=== PATIENT | male | born 1935 | race Caucasian/White ===

== ENCOUNTER → 2017-01-17 | Outpatient (CLI) | payer MEDICARE, OTHER ==
[2017-01-17 12:31] LABS: Urine Bilirubin Negative (Negative); Urine Blood Negative /uL (Negative); Urine Color Yellow (Yellow); Urine Glucose Normal (Normal); Urine Ketone Negative (Negative); Urine Nitrite Negative (Negative); Urine Urobilinogen Normal (Negative)
[2017-01-17 12:33] LABS: Basophils # (auto) 0 uL; Basophils % (auto) 0.6 % (0.0-2.0); Eosinophils # (auto) 0.2 uL; Eosinophils % (auto) 3.5 % (0.0-7.0); Hematocrit 47.5 % (41.0-53.0); Hemoglobin 15.3 g/dL (13.5-17.5); Lymphocytes # (auto) 1.5 uL; Lymphocytes % (auto) 31.5 % (10.0-50.0); Mean Corpuscular Hemoglobin 32.2 pg (28.0-32.0); Mean Corpuscular Hgb Conc. 32.2 g/dL (32.0-36.0); Mean Corpuscular Volume 99.9 fL (80.0-100.0); Mean Platelet Volume 8.7 fL (7.4-10.4); Monocytes # (auto) 0.3 uL; Monocytes % (auto) 6.2 % (0.0-12.0); Neutrophils # (auto) 2.8 uL; Neutrophils % (auto) 58.2 % (37.0-80.0); Platelet Count (auto) 209 10^3/uL (140-450); Red Cell Distribution Width 12.7 % (11.6-16.0); White Blood Cell 4.8 10^3/uL (4.4-10.8)
[2017-01-17 14:05] LABS: Cholesterol 133 mg/dL (<200); HDL Cholesterol 45 mg/dL (40-59); LDL Cholesterol 66 mg/dL (<100); Triglycerides 254 mg/dL (<150)
[2017-01-17 15:27] LABS: Calcium 8.9 mg/dL (8.5-10.1); Potassium 4.7 mmol/L (3.5-5.1)
[2017-01-17 15:29] LABS: BUN/Creatinine Ratio 14.6
[2017-01-17 15:44] LABS: Bilirubin, Direct 0.2 mg/dL (0-0.2); Bilirubin, Total 0.6 mg/dL (0.2-1.0); Total Protein 7.8 g/dL (6.4-8.2)
== END | disposition home or self-care (01) ==
LOC: LAB 07:52
PROVIDERS: ATTEND Internal Medicine Cardiovascular Disease
DX: I10 Essential (primary) hypertension (principal); E78.00 Pure hypercholesterolemia, unspecified; K74.1 Hepatic sclerosis; E11.9 Type 2 diabetes mellitus without complications; R97.20 Elevated prostate specific antigen [PSA]; R53.81 Other malaise; E03.9 Hypothyroidism, unspecified; D64.9 Anemia, unspecified; E55.9 Vitamin D deficiency, unspecified; N39.0 Urinary tract infection, site not specified
CPT/HCPCS: 36415; 80048; 80061; 80076; 81003; 82306; 83036; 84153; 84403; 84443; 85025

== ENCOUNTER → 2017-09-09 | Outpatient (CLI) | payer MEDICARE, OTHER | END | disposition home or self-care (01) | LOC: LAB 10:25 | PROVIDERS: ATTEND Internal Medicine Cardiovascular Disease | DX: E11.9 Type 2 diabetes mellitus without complications (principal) | CPT/HCPCS: 36415; 83036 ==

== ENCOUNTER → 2017-12-05 | Outpatient (CLI) | payer MEDICARE, OTHER | END | disposition home or self-care (01) | LOC: Rad HDHVI 09:51 | PROVIDERS: ATTEND Internal Medicine Cardiovascular Disease | DX: R06.02 Shortness of breath (principal); R07.89 Other chest pain | CPT/HCPCS: 93306 ==

== ENCOUNTER → 2017-12-09 | Outpatient (CLI) | payer MEDICARE, OTHER ==
[~2017-12-09] VITALS: Ht 190.5 cm; Wt 98.4 kg
== END | disposition home or self-care (01) ==
LOC: Rad HDHVI 09:22
PROVIDERS: ATTEND Internal Medicine Cardiovascular Disease
DX: E11.9 Type 2 diabetes mellitus without complications (principal); R07.89 Other chest pain; R06.02 Shortness of breath
CPT/HCPCS: 78452; 93017; 96374; A9500

== ENCOUNTER → 2017-12-25 | Outpatient (CLI) | payer MEDICARE, OTHER | LOC: Rad HDHVI 11:07 | PROVIDERS: ATTEND Internal Medicine Cardiovascular Disease | DX: G31.9 Degenerative disease of nervous system, unspecified (principal); I67.2 Cerebral atherosclerosis; I63.9 Cerebral infarction, unspecified | CPT/HCPCS: 70450 ==

== ENCOUNTER → 2017-12-31 | Outpatient (CLI) | payer MEDICARE, OTHER | END | disposition home or self-care (01) | LOC: Rad HDHVI 08:19 | PROVIDERS: ATTEND Internal Medicine Cardiovascular Disease | DX: I65.23 Occlusion and stenosis of bilateral carotid arteries (principal) | CPT/HCPCS: 93880 ==

== ENCOUNTER → 2018-04-04 | Outpatient (CLI) | payer MEDICARE, OTHER | END | disposition home or self-care (01) | LOC: Rad HDHVI 10:59 | PROVIDERS: ATTEND Internal Medicine Cardiovascular Disease | DX: M85.9 Disorder of bone density and structure, unspecified (principal); M85.10 Skeletal fluorosis, unspecified site; I10 Essential (primary) hypertension; R06.02 Shortness of breath; E11.9 Type 2 diabetes mellitus without complications | CPT/HCPCS: 77078 ==

== ENCOUNTER 2018-09-17 18:13 | Emergency (ER) | payer MEDICARE, OTHER ==
[~2018-09-17] VITALS: Ht 190.5 cm; Wt 77.1 kg
[2018-09-17 18:19] VITALS: BP 169/70
== END 2018-09-17 21:31 | disposition left against medical advice (07) ==
LOC: EDBD 18:13 → ER 18:20
DX: T17.228A Food in pharynx causing other injury, initial encounter (principal); Z53.21 Procedure and treatment not carried out due to patient leaving prior to being seen by health care provider; X58.XXXA Exposure to other specified factors, initial encounter; Y93.89 Activity, other specified; Y99.8 Other external cause status; Y92.89 Other specified places as the place of occurrence of the external cause
CPT/HCPCS: 70360; 71045

== ENCOUNTER → 2019-01-20 | Outpatient (CLI) | payer MEDICARE, OTHER ==
[~2019-01-20] VITALS: Ht 190.5 cm; Wt 95.3 kg
[2019-01-20 12:48] LABS: Urine Blood Negative /uL (Negative)
[2019-01-20 12:50] LABS: Basophils # (auto) 0 uL; Basophils % (auto) 0.6 % (0.0-2.0); Eosinophils # (auto) 0.1 uL; Eosinophils % (auto) 2.7 % (0.0-7.0); Hematocrit 44.9 % (41.0-53.0); Hemoglobin 15.2 g/dL (13.5-17.5); Lymphocytes % (auto) 18.4 % (10.0-50.0); Mean Corpuscular Hemoglobin 33.5 pg (28.0-32.0); Mean Corpuscular Hgb Conc. 33.8 g/dL (32.0-36.0); Mean Corpuscular Volume 99.3 fL (80.0-100.0); Monocytes # (auto) 0.4 uL; Monocytes % (auto) 7.3 % (0.0-12.0); Platelet Count (auto) 171 10^3/uL (140-450); Red Blood Cells 4.53 10^6/uL (4.5-5.90); Red Cell Distribution Width 13.1 % (11.8-14.3); White Blood Cell 5.6 10^3/uL (4.4-10.8)
[2019-01-20 13:07] LABS: Albumin 3.7 g/dL (3.4-5.0); Calcium 9.2 mg/dL (8.5-10.1); Potassium 4.5 mmol/L (3.5-5.1)
[2019-01-20 13:13] LABS: Bilirubin, Total 0.8 mg/dL (0.2-1.0); Total Protein 7.7 g/dL (6.4-8.2)
[2019-01-20 13:24] LABS: Free T4 (Free Thyroxine) 1.06 ng/dL (0.89-1.76); Prostate Specific Antigen 1.93 ng/mL (0.0-4.0)
== END | disposition home or self-care (01) ==
LOC: Rad HDHVI 07:53
PROVIDERS: ATTEND Internal Medicine Cardiovascular Disease
DX: I07.1 Rheumatic tricuspid insufficiency (principal); E55.9 Vitamin D deficiency, unspecified; E03.9 Hypothyroidism, unspecified; E11.9 Type 2 diabetes mellitus without complications; E29.1 Testicular hypofunction; C61 Malignant neoplasm of prostate; D51.9 Vitamin B12 deficiency anemia, unspecified; N39.0 Urinary tract infection, site not specified; I10 Essential (primary) hypertension
CPT/HCPCS: 36415; 78452; 80053; 80061; 81003; 82306; 83036; 84153; 84403; 84439; 84443; 85025; 93017; 93306; 96374; A9500

== ENCOUNTER → 2019-04-21 | Outpatient (CLI) | payer MEDICARE, OTHER ==
[2019-04-21 12:26] LABS: Basophils # (auto) 0 uL; Basophils % (auto) 0.7 % (0.0-2.0); Eosinophils # (auto) 0.2 uL; Eosinophils % (auto) 3.7 % (0.0-7.0); Hematocrit 45.6 % (41.0-53.0); Hemoglobin 15.4 g/dL (13.5-17.5); Lymphocytes # (auto) 1.5 uL; Lymphocytes % (auto) 32.5 % (10.0-50.0); Mean Corpuscular Hemoglobin 33.6 pg (28.0-32.0); Mean Corpuscular Hgb Conc. 33.8 g/dL (32.0-36.0); Mean Corpuscular Volume 99.5 fL (80.0-100.0); Monocytes # (auto) 0.3 uL; Monocytes % (auto) 6.9 % (0.0-12.0); Neutrophils # (auto) 2.6 uL; Neutrophils % (auto) 56.2 % (37.0-80.0); Nucleated Red Blood Cells % 0.1 %; Platelet Count (auto) 190 10^3/uL (140-450); Red Blood Cells 4.58 10^6/uL (4.5-5.90); Red Cell Distribution Width 13.7 % (11.8-14.3); White Blood Cell 4.7 10^3/uL (4.4-10.8)
[2019-04-21 12:30] LABS: Urine Blood Negative /uL (Negative); Urine Specific Gravity 1.026 (1.001-1.035)
[2019-04-21 12:38] LABS: Free T4 (Free Thyroxine) 0.95 ng/dL (0.89-1.76); Prostate Specific Antigen 2.24 ng/mL (0.0-4.0)
[2019-04-21 12:43] LABS: Potassium 4.4 mmol/L (3.5-5.1)
[2019-04-21 14:07] LABS: Bilirubin, Total 0.7 mg/dL (0.2-1.0); Calcium 9.3 mg/dL (8.5-10.1)
[2019-04-21 14:08] LABS: Albumin 3.8 g/dL (3.4-5.0); Total Protein 7.7 g/dL (6.4-8.2)
== END | disposition home or self-care (01) ==
LOC: LAB 08:51
PROVIDERS: ATTEND Internal Medicine Cardiovascular Disease
DX: E03.9 Hypothyroidism, unspecified (principal); E55.9 Vitamin D deficiency, unspecified; E11.319 Type 2 diabetes mellitus with unspecified diabetic retinopathy without macular edema; E29.1 Testicular hypofunction; C61 Malignant neoplasm of prostate; D51.9 Vitamin B12 deficiency anemia, unspecified; N39.0 Urinary tract infection, site not specified; Z79.899 Other long term (current) drug therapy
CPT/HCPCS: 36415; 80053; 80061; 81003; 82306; 82607; 83036; 84153; 84403; 84439; 84443; 85025; 85652; 87086

== ENCOUNTER → 2019-10-19 | Outpatient (CLI) | payer MEDICARE, OTHER | END | disposition home or self-care (01) | LOC: Rad HDHVI 11:02 | PROVIDERS: ATTEND Internal Medicine Cardiovascular Disease | DX: I70.0 Atherosclerosis of aorta (principal); E03.9 Hypothyroidism, unspecified; N40.0 Benign prostatic hyperplasia without lower urinary tract symptoms; E11.9 Type 2 diabetes mellitus without complications; I10 Essential (primary) hypertension; Z88.0 Allergy status to penicillin | CPT/HCPCS: 71046 ==

== ENCOUNTER → 2020-08-10 | Outpatient (CLI) | payer MEDICARE, BC ==
[2020-08-10 11:46] LABS: Urine Blood Negative /uL (Negative); Urine Specific Gravity 1.023 (1.001-1.035)
[2020-08-10 11:54] LABS: Potassium 4.9 mmol/L (3.5-5.1)
[2020-08-10 11:56] LABS: Free T4 (Free Thyroxine) 0.99 ng/dL (0.89-1.76); Prostate Specific Antigen 2.65 ng/mL (0.0-4.0)
[2020-08-10 12:01] LABS: Albumin 3.6 g/dL (3.4-5.0); BUN/Creatinine Ratio 17.9; Bilirubin, Total 0.3 mg/dL (0.2-1.0); Total Protein 7.5 g/dL (6.4-8.2)
[2020-08-10 12:05] LABS: Basophils # (auto) 0 10 ^3/uL (0-0.2); Basophils % (auto) 0.7 % (0.0-2.0); Eosinophils # (auto) 0.2 10 ^3/uL (0-0.8); Eosinophils % (auto) 3.2 % (0.0-7.0); Hematocrit 43.3 % (41.0-53.0); Hemoglobin 14.6 g/dL (13.5-17.5); Lymphocytes # (auto) 1.8 10 ^3/uL (0.4-5.4); Lymphocytes % (auto) 33.2 % (10.0-50.0); Mean Corpuscular Hemoglobin 33.8 pg (28.0-32.0); Mean Corpuscular Hgb Conc. 33.8 g/dL (32.0-36.0); Mean Corpuscular Volume 99.9 fL (80.0-100.0); Monocytes # (auto) 0.5 10 ^3/uL (0-1.3); Monocytes % (auto) 9.3 % (0.0-12.0); Neutrophils # (auto) 2.9 10 ^3/uL (1.6-8.6); Neutrophils % (auto) 53.6 % (37.0-80.0); Nucleated Red Blood Cells % 0.1 %; Platelet Count (auto) 200 10^3/uL (140-450); Red Blood Cells 4.34 10^6/uL (4.5-5.90); White Blood Cell 5.3 10^3/uL (4.4-10.8)
== END | disposition home or self-care (01) ==
LOC: LAB 07:52
PROVIDERS: ATTEND Internal Medicine Cardiovascular Disease
DX: C61 Malignant neoplasm of prostate (principal); D51.3 Other dietary vitamin B12 deficiency anemia; D64.9 Anemia, unspecified; E11.9 Type 2 diabetes mellitus without complications; E55.9 Vitamin D deficiency, unspecified; I10 Essential (primary) hypertension; R00.2 Palpitations; R53.1 Weakness; R30.0 Dysuria
CPT/HCPCS: 36415; 80053; 80061; 81003; 82306; 82607; 83036; 84153; 84403; 84439; 84443; 85025

== ENCOUNTER → 2020-12-15 | Outpatient (CLI) | payer MEDICARE, BC ==
[~2020-12-15] VITALS: Ht 30.5 cm; Wt 0.5 kg
[~2020-12-15] MED LIST: KETOROLAC TROMETH 60MG/2ML VIAL IM ONE; KETOROLAC TROMETH 60MG/2ML VIAL ONE
[2020-12-15 15:00] VITALS: BP 125/71
[2020-12-15 15:28] VITALS: BP 124/67
== END | disposition home or self-care (01) ==
LOC: CHF HDHVI 15:03
PROVIDERS: ATTEND Internal Medicine Cardiovascular Disease
DX: G89.29 Other chronic pain (principal); M79.606 Pain in leg, unspecified; M25.559 Pain in unspecified hip; I10 Essential (primary) hypertension; E11.9 Type 2 diabetes mellitus without complications
CPT/HCPCS: 96372; G0463; J1885

== ENCOUNTER → 2021-12-04 | Outpatient (CLI) | payer MEDICARE, BC ==
[2021-12-04 11:29] LABS: Urine Blood Negative /uL (Negative); Urine Specific Gravity 1.019 (1.001-1.035)
[2021-12-04 11:31] LABS: Basophils # (auto) 0.1 10 ^3/uL (0-0.2); Basophils % (auto) 1.1 % (0.0-2.0); Eosinophils # (auto) 0.2 10 ^3/uL (0-0.8); Hematocrit 41.8 % (41.0-53.0); Hemoglobin 13.9 g/dL (13.5-17.5); Lymphocytes % (auto) 37.9 % (10.0-50.0); Mean Corpuscular Hemoglobin 32.8 pg (28.0-32.0); Mean Corpuscular Hgb Conc. 33.3 g/dL (32.0-36.0); Mean Corpuscular Volume 98.5 fL (80.0-100.0); Monocytes # (auto) 0.4 10 ^3/uL (0-1.3); Monocytes % (auto) 7.5 % (0.0-12.0); Neutrophils # (auto) 2.7 10 ^3/uL (1.6-8.6); Neutrophils % (auto) 50.5 % (37.0-80.0); Nucleated Red Blood Cells % 0.1 %; Red Blood Cells 4.24 10^6/uL (4.5-5.90); Red Cell Distribution Width 12.5 % (11.8-14.3); White Blood Cell 5.3 10^3/uL (4.4-10.8)
[2021-12-04 11:40] LABS: Albumin 3.7 g/dL (3.4-5.0); Calcium 9.4 mg/dL (8.5-10.1)
[2021-12-04 11:45] LABS: BUN/Creatinine Ratio 18.8; Bilirubin, Total 0.4 mg/dL (0.2-1.0); Total Protein 7.7 g/dL (6.4-8.2)
[2021-12-04 11:51] LABS: Free T4 (Free Thyroxine) 0.97 ng/dL (0.89-1.76)
== END | disposition home or self-care (01) ==
LOC: LAB 07:59
PROVIDERS: ATTEND Internal Medicine Cardiovascular Disease
DX: C61 Malignant neoplasm of prostate (principal); E11.9 Type 2 diabetes mellitus without complications; D51.3 Other dietary vitamin B12 deficiency anemia; D64.9 Anemia, unspecified; E55.9 Vitamin D deficiency, unspecified; I10 Essential (primary) hypertension; R00.2 Palpitations; R53.1 Weakness; R30.0 Dysuria
CPT/HCPCS: 36415; 80053; 80061; 81003; 82306; 82607; 83036; 84153; 84403; 84439; 84443; 85025; 87086

== ENCOUNTER → 2021-12-07 | Outpatient (CLI) | payer MEDICARE, BC | END | disposition home or self-care (01) | LOC: Rad HDHVI 08:54 | PROVIDERS: ATTEND Internal Medicine Cardiovascular Disease | DX: I51.7 Cardiomegaly (principal); R07.9 Chest pain, unspecified; R06.02 Shortness of breath | CPT/HCPCS: 93306 ==

== ENCOUNTER → 2021-12-12 | Outpatient (CLI) | payer MEDICARE, BC ==
[~2021-12-12] VITALS: Ht 190.5 cm; Wt 93.0 kg
== END | disposition home or self-care (01) ==
LOC: Rad HDHVI 08:28
PROVIDERS: ATTEND Internal Medicine Cardiovascular Disease
DX: I10 Essential (primary) hypertension (principal); E78.5 Hyperlipidemia, unspecified; R07.89 Other chest pain; R06.02 Shortness of breath
CPT/HCPCS: 78452; 93017; 96374; A9500

== ENCOUNTER → 2022-10-31 | Outpatient (CLI) | payer MEDICARE, BC | END | disposition home or self-care (01) | LOC: Rad HDHVI 08:08 | PROVIDERS: ATTEND Internal Medicine Cardiovascular Disease | DX: I35.0 Nonrheumatic aortic (valve) stenosis (principal); R06.02 Shortness of breath; R07.89 Other chest pain | CPT/HCPCS: 93306 ==

== ENCOUNTER 2025-05-25 08:02 | Outpatient (CLI) | payer MEDICARE, BC | END 2025-05-25 17:00 | disposition home or self-care (01) | LOC: Rad HDHVI 08:02 | PROVIDERS: ATTEND Internal Medicine Cardiovascular Disease | DX: I11.9 Hypertensive heart disease without heart failure (principal); R06.02 Shortness of breath | CPT/HCPCS: 93306 ==

== ENCOUNTER → 2025-05-28 | Outpatient (CLI) | payer MEDICARE, BC ==
[~2025-05-28] VITALS: Ht 190.5 cm; Wt 90.7 kg
== END | disposition home or self-care (01) ==
LOC: Rad HDHVI 09:24
PROVIDERS: ATTEND Internal Medicine Cardiovascular Disease
DX: I49.1 Atrial premature depolarization (principal); I49.3 Ventricular premature depolarization; R00.0 Tachycardia, unspecified; R00.1 Bradycardia, unspecified; Z13.6 Encounter for screening for cardiovascular disorders; E11.9 Type 2 diabetes mellitus without complications; I10 Essential (primary) hypertension; I25.2 Old myocardial infarction; I25.10 Atherosclerotic heart disease of native coronary artery without angina pectoris; R00.2 Palpitations; E78.00 Pure hypercholesterolemia, unspecified; Z82.49 Family history of ischemic heart disease and other diseases of the circulatory system; Z88.0 Allergy status to penicillin
CPT/HCPCS: 78452; 93017; A9500; 96374

== ENCOUNTER 2025-08-09 08:23 | Inpatient (IN) | payer MEDICARE, BC ==
[~2025-08-09] VITALS: Ht 190.5 cm; Wt 88.4 kg
--- NOTE | 2025-08-09 08:38 | ECG ---
[facility] Test Date: 2025-08-09 Test Time: 08:31:30 Pat Name: LUCINDA JULIAN Department: Room: [address] [place] [address] Gender: M Cleaning Team Member: LAURA : 1935 Requested By: EMERGENCY EMERGENCY Order Number: [id number] Reading MD: Danny Carrasquillo Measurements Intervals [place] Rate: 87 P: 66 MN: 187 QRS: 42 QRSD: 130 T: 35 QT: 406 QTc: 489 Interpretive Statements Sinus rhythm IVCD, consider atypical RBBB Electronically Signed On 08-09-2025 14:28:35 PDT by Danny Carrasquillo Please click the below link to view image of tracing.
--- NOTE | 2025-08-09 08:42 | ED.PDOC ---
History of Present Illness HPI Comments 89 year old male presents to the ED via EMS with a chief complaint of fall injury onset today around 02:00. Per EMS, patient woke up this morning to use restroom, was feeling weak, lost his balance, hit LT side on dresser, fell on the ground, was able to get himself up. Patient states he is currently experie ncing bilateral rib pain, rates pain 10/10. PMHx Colon and Liver cancer, HLD. EMS was told by pateint's son, patient has unsteady gait, uses a walker to ambulate. Denies head injury, neck pain, LOC, headache, nausea, vomiting, diarrhea, fever, chills, chest pain, shortness of breath. No other symptoms or modifying factors present at this time. Chief Complaint: Fall Injury Time Seen by MD: 08:30 Reviewed Notes: Medications, Allergies Allergies: Coded Allergies: Penicillins (Verified Allergy, Unknown, 12/09/17) Information Source: Patient, Emergency Med Personnel Mode of Arrival: EMS Severity: Moderate Timing: Hours Duration: Since onset Prehospital treatment: None Past Medical History PAST MEDICAL HISTORY: Cancer, High Lipids Surgical History: Denies all surgeries Family History Family History: Reviewed,noncontributory to illness, No family hx of Cancer, No family hx of DM, No family hx of Heart patricio, No family hx of HTN, No family hx ofKidney patricio, No family hx of Liver patricio, No family hx of Lung patricio, No family hx of Stroke Social History Smoker: Non-Smoker Alcohol: Denies ETOH Use Drugs: Denies Drug Use Lives In: Home Constitutional: denies: chills, diaphoresis, fatigue, fever, malaise, sweats, weakness, others EENTM: denies: blurred vision, double vision, ear bleeding, ear discharge, ear drainage, ear pain, ear ringing, eye pain, eye redness, hearing loss, mouth pain, mouth swelling, nasal discharge, nose bleeding, nose congestion, nose pain, photophobia, tearing, throat pain, throat swelling, voice changes, others Respiratory: denies: cough, hemoptysis, orthopnea, SOB at rest, shortness of breath, SOB with excertion, stridor, wheezing, others Cardiovascular: denies: chest pain, dizzy spells, diaphoresis, Dyspnea on exertion, edema, irregular heart beat, left arm pain, lightheadedness, palpitations, PND, syncope, others Gastrointestinal: denies: abdomen distended, abdominal pain, blood streaked bowels, constipated, diarrhea, dysphagia, difficulty swallowing, hematemesis, melena, nausea, poor appetite, poor fluid intake, rectal bleeding, rectal pain, vomiting, others Genitourinary: denies: burning, dysuria, flank pain, frequency, hematuria, incontinence, penile discharge, penile sore, pain, testicle pain, testicle swelling, urgency, others Neurological: denies: dizziness, fainting, headache, left sided numbness, left sided weakness, numbness, paresthesia, pre-existing deficit, right sided numbness, right sided weakness, seizure, speech problems, tingling, tremors, weakness, others Musculoskeletal: reports: others (bilateral rib pain); denies: back pain, gout, joint pain, joint swelling, muscle pain, muscle stiffness, neck pain Integumetry: denies: bruises, change in color, change in hair/nails, dryness, laceration, lesions, lumps, rash, wounds, others Allergic/Immunocompromised: denies: Difficulty Healing, Frequent Infections, Hives, Itching, others Hematologic/Lymphatic: denies: anemia, blood clots, easy bleeding, easy bruising, swollen glands, others Endocrine: denies: excessive hunger, excessive sweating, excessive thirst, excessive urination, flushing, intolerance to cold, intolerance to heat, unexplained weight gain, unexplained weight loss, others Psychiatric: denies: anxiety, bipolar disorder, depression, hopeless, panic disorder, schizophrenia, sleepless, suicidal, others All Other Systems: Reviewed and Negative Physical Exam General Appearance: Moderate Distress HEENT: Normal ENT Inspection, Pharynx Normal, TMs Normal Neck: Full Range of Motion, Non-Tender, Normal, Normal Inspection Respiratory: Chest Non-Tender, Lungs Clear, No Accessory Muscle Use, No Respir atory Distress, Normal Breath Sounds Cardiovascular: No Edema, No JVD, No Murmur, No Gallop, Normal Peripheral Pulses, Regular Rate/Rhythm Breast Exam: Deferred Gastrointestinal: No Organomegaly, Non Tender, No Pulsatile Mass, Normal Bowel Sounds, Soft Genitalia: Deferred Pelvic: Deferred Rectal: Deferred Extremities: No calf tenderness, Normal capillary refill, Normal inspection, Normal range of motion, Non-tender, No pedal edema Musculoskeletal : Apperance: Normal Neurologic: Alert, mixer blender II-XII nml as Tested, No Motor Deficits, Normal Affect, Normal Mood, No Sensory Deficits Cerebellar Function: NOT DONE Reflexes: NOT DONE Skin: Dry, Normal Color, Warm, Wounds (Right elbow skin tear) Peripheral Pulses: 3+ Radial (R), 3+ Radial (L) Lymphatic: No Adenopathy Was a procedure done? Was a procedure done?: No EKG EKG : Pulse Rate (adult): 87 Cardiac Rhythm: NSR Differential Dx Considerations may include: Anemia Electrolyte imbalance X-Ray, Labs, Meds, VS Vital Signs Date Time Temp Pulse Resp B/P (MAP) Pulse Ox O2 Delivery O2 Flow Rate FiO2 08/09/25 10:08 60 18 155/66 08/09/25 10:05 97.7 60 16 155/66 (95) 94 97.7 08/09/25 10:05 60 16 94 Room Air 08/09/25 08:43 87 08/09/25 08:31 87 08/09/25 08:30 98.3 90 18 183/77 94 98.3 Lab Test 08/09/25 08:50 Range/Units White Blood Count 10.8 4.4-10.8 10^3/uL Red Blood Count 4.56 4.5-5.90 10^6/uL Hemoglobin 15.1 13.5-17.5 g/dL Hematocrit 43.5 41.0-53.0 % Mean Corpuscular Volume 95.4 80.0-100.0 fL Mean Corpuscular Hemoglobin 33.1 H 28.0-32.0 pg Mean Corpuscular Hemoglobin Concent 34.7 32.0-36.0 g/dL Red Cell Distribution Width 13.8 11.8-14.3 % Platelet Count 191 140-450 10^3/uL Mean Platelet Volume 7.9 6.9-10.8 fL Neutrophils (%) (Auto) 87.9 H 37.0-80.0 % Lymphocytes (%) (Auto) 7.0 L 10.0-50.0 % Monocytes (%) (Auto) 4.9 0.0-12.0 % Eosinophils (%) (Auto) 0.1 0.0-7.0 % Basophils (%) (Auto) 0.1 0.0-2.0 % Neutrophils # (Auto) 9.4 H 1.6-8.6 10 ^3/uL Lymphocytes # (Auto) 0.8 0.4-5.4 10 ^3/uL Monocytes # (Auto) 0.5 0-1.3 10 ^3/uL Eosinophils # (Auto) 0 0-0.8 10 ^3/uL Basophils # (Auto) 0 0-0.2 10 ^3/uL Nucleated Red Blood Cells 0.0 % Sodium Level 140 136-145 mmol/L Potassium Level 4.2 3.5-5.1 mmol/L Chloride Level 108 H 98-107 mmol/L Carbon Dioxide Level 24 20-31 mmol/L Anion Gap 8 5-15 Blood Urea Nitrogen 15 9-23 mg/dL Creatinine 0.85 0.700-1.30 mg/dL Glomerular Filtration Rate Calc 83 >90 mL/min BUN/Creatinine Ratio 17.6 10.0-20.0 Serum Glucose 160 H 74-106 mg/dL Calcium Level 9.6 8.7-10.4 mg/dL Troponin I High Sensitivity 11 </=54 ng/L Current Medications Medications (Trade) Dose Ordered Sig/Taz Route Start Time Stop Time Status Last Admin Morphine Sulfate 2 mg ONCE ONCE IM 08/09/25 09:45 08/09/25 09:46 DC 08/09/25 10:08 Ondansetron HCl (Zofran) 4 mg ONCE ONCE IV 08/09/25 09:45 08/09/25 09:46 DC 08/09/25 09:56 Patient alert. Status post fall. Denies use of any medication. Blood pressure elevated. Heart rate within normal limits. History of liver colon cancer. EKG reviewed does not show any acute process. Explained to the patient. Continue monitoring. [address] [address] Ph: [phone] DIAGNOSTIC IMAGING Diagnostic Imaging Report : [id number] Signed PATIENT: LUCINDA JULIAN ACCT: [id number] UNIT: [id number] : 1935 LOC: ER ROOM / BED: / AGE / SEX: 89 / M ADM STATUS: REG ER SERVICE 8 ORDERING PHYSICIAN: HOME GONZALES MD PROCEDURE(s): CXRP - CHEST PORTABLE REASON: sob ORDER NUMBER(s): [id number], ACCESSION NUMBER(s): [id number] CHEST RADIOGRAPH Indication: sob Technique: Single frontal view of the chest was obtained COMPARISON: None FINDINGS: Lines and Tubes: None Lungs: Congestion Pleura: No effusion. No pneumothorax. Cardiomediastinal contours: Unremarkable Bones: Unremarkable IMPRESSION: Increased interstital prominence. This may represent pulmonary vascular congestion and/or viral pneumonia. Clinical correlation advised. ATED BY: EDGAR NEWELL MD DICTATED DATE/TIME: 08/09/25917 SIGNED BY: EDGAR NEWELL MD SIGNED DATE/TIME: 08/09/25917 CC: [place] [id number] Ph: [phone] DIAGNOSTIC IMAGING Diagnostic Imaging Report : [id number] Signed PATIENT: LUCINDA JULIAN ACCT: [id number] UNIT: [id number] : 1935 LOC: ER ROOM / BED: / AGE / SEX: 89 / M ADM STATUS: REG ER SERVICE 8 ORDERING PHYSICIAN: HOME GONZALES MD PROCEDURE(s): ABPL - CT AB PEL WO CON-NO ORAL OR IV REASON: colon ORDER NUMBER(s): [id number], ACCESSION NUMBER(s): [id number] Exam: CT CT AB PEL WO CON-NO ORAL OR IV History: Colon Comparison Study: [facility] on DOS: 10/31/22 Technique: Multidetector spiral CT of the abdomen and pelvis was performed from lung bases to pubic symphysis. Imaging was performed without intravenous contrast. Coronal and sagittal multiplanar reformats were obtained from the axial data set by the technologist. Radiation Dose : 1. Abdomen/Pelvis: CTDIvol 12.33 mGy, DLP 761.1 mGy*cm. Findings: Evaluation of vasculature and solid organs is limited due to lack of intravenous contrast use. Lung Bases: Lung bases are clear. Visualized portions of the heart and pericardium are unremarkable. Liver: The liver is normal in size. Calcification versus metallic density noted in the inferior right hepatic lobe. Gallbladder and Biliary Tree: Multiple gallstones. No intrahepatic or extrahepatic biliary ductal dilatation. Spleen: Unremarkable Pancreas: The pancreas is grossly unremarkable. Adrenal Glands: Unremarkable Kidneys: Kidneys are unremarkable without calculi or hydronephrosis. Bilateral renal cysts. GI tract: The stomach is grossly normal in appearance. No evidence of small- bowel obstruction or mucosal thickening. Scattered stool throughout the colon. Colonic diverticulosis without acute diverticulitis. No acute appendicitis. Peritoneum/mesentery/retroperitoneum. No evidence of free intraperitoneal air. No ascites. No evidence of suspicious lymphadenopathy. Abdominal Wall: Unremarkable. Vasculature: 3.6 cm infrarenal abdominal aortic aneurysm is present. There are atherosclerotic calcifications in the aorta. Urinary Bladder: There are multiple bladder stones measuring up to 11 mm. Pelvic Organs: Prostate 5.3 cm. Musculoskeletal: There is acute appearing T11 fracture. Multilevel lumbar spondylosis. IMPRESSION: 1. Colonic diverticulosis without acute diverticulitis. 2. Acute appearing T11 fracture without significant height loss. 3. 3.6 cm infrarenal abdominal aortic aneurysm. 4. Prostatomegaly. 5. Bladder stones. 6. Cholelithiasis. 7. Colonic diverticulosis without acute diverticulitis. ATED BY: SARA GUZMAN MD DICTATED DATE/TIME: 08/09/25925 SIGNED BY: SARA GUZMAN MD SIGNED DATE/TIME: 08/09/25925 CC: Time of 1ST Reevaluation: 09:00 Reevaluation 1ST: Unchanged Patient Education/Counseling: Diagnosis, Treatment, Prognosis Family Education/Counseling: No Family Present SEPSIS Sepsis Screen Date sepsis recognized/suspect: Aug 09, 2025 Time Sepsis recognized/suspect: 824 Recent Procedure: No On Antibiotic Therapy: No Respiratory Rate >20: No Heart Rate >90: No Temp<36 C (96.8 F) or >38.3 C: No SBP <90 or MAP <65 mmHG: No New Acute Mental Status Change: No Is the patient on CPAP, BIPAP,: No Physician Orders Chest Portable (08/09/25 08:29) Urinalysis (08/09/25 08:29) Ct Ab Pel Wo Con-No Oral Or Iv (08/09/25 08:29) Vital Signs Date Time Temp Pulse Resp B/P (MAP) Pulse Ox O2 Delivery O2 Flow Rate FiO2 08/09/25 10:08 60 18 155/66 08/09/25 10:05 97.7 60 16 155/66 (95) 94 97.7 08/09/25 10:05 60 16 94 Room Air 08/09/25 08:43 87 08/09/25 08:31 87 08/09/25 08:30 98.3 90 18 183/77 94 98.3 Laboratory Tests Test 08/09/25 08:50 White Blood Count 10.8 10^3/uL (4.4-10.8) Medications Medications Dose Ordered Sig/Taz Route Start Time Stop Time Status Last Admin Dose Admin Morphine Sulfate 2 mg ONCE ONCE IM 08/09/25 09:45 08/09/25 09:46 DC 08/09/25 10:08 Ondansetron HCl 4 mg ONCE ONCE IV 08/09/25 09:45 08/09/25 09:46 DC 08/09/25 09:56 Departure 1 Departure Time of Disposition: 08:48 Impression: Primary Impression: Thoracic spine fracture Qualified Codes: S22.009A - Unspecified fracture of unspecified thoracic vertebra, initial encounter for closed fracture Additional Impressions: Acute abdominal pain Gallstones Disposition: ADMITTED INPATIENT Admit to: Med Surg Condition: Guarded Critical Care Note Critical Care Time?: No Stability Stability form required: No Heart Score Heart Score: Heart Score Response (Comments) Value History Slightly Suspicious 0 EKG Normal 0 Age >65 2 Risk Factors >3 or Hx ASHD 2 Troponin Normal limit 0 Total 4 I personally scribed for HOME GONZALES MD ([email or web address]) on 08/09/25 at 08:42. Electronically submitted by Sherman Wallis ([email or web address]). I personally scribed for HOME GONZALES MD ([email or web address]) on 08/09/25 at 08:43. Electronically submitted by Sherman Wallis ([email or web address]). I personally scribed for HOME GONZALES MD ([email or web address]) on 08/09/25 at 10:41. Electronically submitted by Katalina Mahoney ([email or web address]). HOME GONZALES MD Aug 09, 2025 08:42
[2025-08-09 09:14] LABS: Hematocrit 43.5 % (41.0-53.0); Hemoglobin 15.1 g/dL (13.5-17.5); Mean Corpuscular Hemoglobin 33.1 pg (28.0-32.0); Mean Corpuscular Volume 95.4 fL (80.0-100.0); Nucleated Red Blood Cells % 0.0 %
--- NOTE | 2025-08-09 09:20 | DVH ---
CHEST RADIOGRAPH Indication: sob Technique: Single frontal view of the chest was obtained COMPARISON: None FINDINGS: Lines and Tubes: None Lungs: Congestion Pleura: No effusion. No pneumothorax. Cardiomediastinal contours: Unremarkable Bones: Unremarkable IMPRESSION: Increased interstital prominence. This may represent pulmonary vascular congestion and/or viral pneum onia. Clinical correlation advised.
[2025-08-09 09:22] LABS: Potassium 4.2 mmol/L (3.5-5.1); Sodium 140 mmol/L (136-145)
[2025-08-09 09:23] LABS: Anion Gap 8 (5-15); Calcium 9.6 mg/dL (8.7-10.4); Carbon Dioxide 24 mmol/L (20-31)
[2025-08-09 09:24] LABS: Chloride 108 mmol/L (98-107)
[2025-08-09 09:28] LABS: BUN/Creatinine Ratio 17.6 (10.0-20.0); Blood Urea Nitrogen 15 mg/dL (9-23)
--- NOTE | 2025-08-09 09:28 | DVH ---
Exam: CT CT AB PEL WO CON-NO ORAL OR IV History: Colon Comparison Study: [facility] on DOS: 10/31/22 Technique: Multidetector spiral CT of the abdomen and pelvis was performed from lung bases to pubic s ymphysis. Imaging was performed without intravenous contrast. Coronal and sagittal multiplanar reform ats were obtained from the axial data set by the technologist. Radiation Dose : 1. Abdomen/Pelvis: CTDIvol 12.33 mGy, DLP 761.1 mGy*cm. Findings: Evaluation of vasculature and solid organs is limited due to lack of intravenous contrast use. Lung Bases: Lung bases are clear. Visualized portions of the heart and pericardium are unremarkable. Liver: The liver is normal in size. Calcification versus metallic density noted in the inferior righ t hepatic lobe. Gallbladder and Biliary Tree: Multiple gallstones. No intrahepatic or extrahepatic biliary ductal di latation. Spleen: Unremarkable Pancreas: The pancreas is grossly unremarkable. Adrenal Glands: Unremarkable Kidneys: Kidneys are unremarkable without calculi or hydronephrosis. Bilateral renal cysts. GI tract: The stomach is grossly normal in appearance. No evidence of small-bowel obstruction or muco merlin thickening. Scattered stool throughout the colon. Colonic diverticulosis without acute diverticul itis. No acute appendicitis. Peritoneum/mesentery/retroperitoneum. No evidence of free intraperitoneal air. No ascites. No evidenc e of suspicious lymphadenopathy. Abdominal Wall: Unremarkable. Vasculature: 3.6 cm infrarenal abdominal aortic aneurysm is present. There are atherosclerotic calcifications in the aorta. Urinary Bladder: There are multiple bladder stones measuring up to 11 mm. Pelvic Organs: Prostate 5.3 cm. Musculoskeletal: There is acute appearing T11 fracture. Multilevel lumbar spondylosis. IMPRESSION: 1. Colonic diverticulosis without acute diverticulitis. 2. Acute appearing T11 fracture without significant height loss. 3. 3.6 cm infrarenal abdominal aortic aneurysm. 4. Prostatomegaly. 5. Bladder stones. 6. Cholelithiasis. 7. Colonic diverticulosis without acute diverticulitis.
[2025-08-09 09:30] LABS: Glucose 160 mg/dL (74-106)
[2025-08-09] MEDS: ONDANSETRON HCL 4 MG/2 ML VIAL IV ONE (09:56)
[2025-08-09] MEDS: MORPHINE SULFATE INJ 2 MG/ml SYRG IM ONE (10:08)
[2025-08-09] MEDS ORDERED: MORPHINE SULFATE INJ 2 MG/ml SYRG IV PRN (13:45)
[2025-08-09] MEDS ORDERED: ONDANSETRON HCL 4 MG/2 ML VIAL IV PRN (13:45)
[2025-08-09] MEDS ORDERED: NITROGLYCERIN 0.4 MG SL TAB SL PRN (13:45)
[2025-08-09] MEDS ORDERED: ACETAMINOPHEN 325 MG TAB PO PRN (13:45)
[2025-08-09] MEDS ORDERED: DOCUSATE SOD 100 MG CAP PO PRN (13:45)
[2025-08-09] MEDS ORDERED: ATOR40TA52 PO (13:46)
[2025-08-09] MEDS ORDERED: ALFU1TAB15 PO (13:46)
--- NOTE | 2025-08-09 14:33 | DVHHP2 ---
History of Present Illness Reason for Visit: S/P fall History of Present Illness Darrell Valdez is an 89-year-old male with past medical history of hyperlipidemia and BPH who came to the hospital for bilateral flank/side pain S/P fall. This morning at 0200 the patient woke up and got out of bed to use the bathroom. As he got up he fell hitting the right side of his body Cardiovascular: hyperipidemia Renal/: Benign prostatic enlarg. Smoke: <1 pack per day (Occassional cigars) ALCOHOL: heavy (daily ) Drugs: None Lives: with Family Domestic Violence: Neg Review of Systems Constitutional: No: Fever, Chills, Sweats, Weakness, Malaise, Other Eyes: No: Pain, Vision change, Conjunctivae inflammation, Eyelid inflammation, Other, Redness ENT: No: Ear pain, Ear discharge, Nose pain, Nose discharge, Nose congestion, Mouth pain, Mouth swelling, Throat pain, Throat swelling, Other Respiratory: No: Cough, Dry, Shortness of breath, SOB with excertion, Wheezing, Hemoptysis, Pleuritic Pain, Sputum, Wheezing, Other Cardiovascular: No: Chest Pain, Palpitations, Orthopnea, Paroxysmal Noc. Dyspnea, Edema, Lt Headedness, Other Gastrointestinal: Abdominal Pain (severe right and left abdominal/rib pain); No: Nausea, Vomiting, Diarrhea, Constipation, Melena, Hematochezia, Other Genitourinary: No Dysuria, No Frequency, No Incontinence, No Hematuria, No Retention, No Other Musculoskeletal: No: other, neck pain, shoulder pain, arm pain, back pain, hand pain, leg pain, foot pain Skin: No: Rash, Lesions, Jaundice, Bruising, Other Neurological: No: Weakness, Numbness, Incoordination, Change in speech, Confusi on, Seizures, Other Allergies: Coded Allergies: Penicillins (Verified Allergy, Unknown, 12/09/17) Medications Current Medications Medications Dose Ordered Sig/Taz Route Start Time Stop Time Status Last Admin Dose Admin Acetaminophen/ Hydrocodone Bitart 1 tab Q4HP PRN PO 08/09/25 13:45 UNV Ondansetron HCl 4 mg Q4HP PRN IV 08/09/25 13:45 UNV Docusate Sodium 100 mg BIDPRN PRN PO 08/09/25 13:45 UNV Acetaminophen 650 mg Q6HP PRN PO 08/09/25 13:45 UNV Exam Vital Signs Vital Signs Date Time Temp Pulse Resp B/P (MAP) Pulse Ox O2 Delivery O2 Flow Rate FiO2 08/09/25 12:39 69 14 165/70 (101) 96 08/09/25 10:05 97.7 97.7 08/09/25 10:05 Room Air General Appearance: Alert, Oriented X3, Cooperative HEENT: Atraumatic, PERRLA Respiratory: Clear to auscultation, Normal air movement Cardiovascular: Regular rate, Normal S1, Normal S2, No murmurs Abdominal: Normal bowel sounds, Other (tender to palpitation on right and left lower quadrants) Extremities: No clubbing, No cyanosis, No edema, Normal pulses Skin: No significant lesion (right arm bruise and skin tear due to fall) Neuro: Normal speech, Strength at 5/5 X4 ext Psych/Mental Status: Mental status NL Labs/Xrays Labs Test 08/09/25 08:50 Range/Units White Blood Count 10.8 4.4-10.8 10^3/uL Red Blood Count 4.56 4.5-5.90 10^6/uL Hemoglobin 15.1 13.5-17.5 g/dL Hematocrit 43.5 41.0-53.0 % Mean Corpuscular Volume 95.4 80.0-100.0 fL Mean Corpuscular Hemoglobin 33.1 H 28.0-32.0 pg Mean Corpuscular Hemoglobin Concent 34.7 32.0-36.0 g/dL Red Cell Distribution Width 13.8 11.8-14.3 % Platelet Count 191 140-450 10^3/uL Mean Platelet Volume 7.9 6.9-10.8 fL Neutrophils (%) (Auto) 87.9 H 37.0-80.0 % Lymphocytes (%) (Auto) 7.0 L 10.0-50.0 % Monocytes (%) (Auto) 4.9 0.0-12.0 % Eosinophils (%) (Auto) 0.1 0.0-7.0 % Basophils (%) (Auto) 0.1 0.0-2.0 % Neutrophils # (Auto) 9.4 H 1.6-8.6 10 ^3/uL Lymphocytes # (Auto) 0.8 0.4-5.4 10 ^3/uL Monocytes # (Auto) 0.5 0-1.3 10 ^3/uL Eosinophils # (Auto) 0 0-0.8 10 ^3/uL Basophils # (Auto) 0 0-0.2 10 ^3/uL Nucleated Red Blood Cells 0.0 % Sodium Level 140 136-145 mmol/L Potassium Level 4.2 3.5-5.1 mmol/L Chloride Level 108 H 98-107 mmol/L Carbon Dioxide Level 24 20-31 mmol/L Anion Gap 8 5-15 Blood Urea Nitrogen 15 9-23 mg/dL Creatinine 0.85 0.700-1.30 mg/dL Glomerular Filtration Rate Calc 83 >90 mL/min BUN/Creatinine Ratio 17.6 10.0-20.0 Serum Glucose 160 H 74-106 mg/dL Calcium Level 9.6 8.7-10.4 mg/dL Troponin I High Sensitivity 11 </=54 ng/L Exam: CT CT AB PEL WO CON-NO ORAL OR IV Findings: Evaluation of vasculature and solid organs is limited due to lack of intravenous contrast use. Lung Bases: Lung bases are clear. Visualized portions of the heart and pericardium are unremarkable. Liver: The liver is normal in size. Calcification versus metallic density noted in the inferior right hepatic lobe. Gallbladder and Biliary Tree: Multiple gallstones. No intrahepatic or extrahepatic biliary ductal dilatation. Spleen: Unremarkable Pancreas: The pancreas is grossly unremarkable. Adrenal Glands: Unremarkable Kidneys: Kidneys are unremarkable without calculi or hydronephrosis. Bilateral renal cysts. GI tract: The stomach is grossly normal in appearance. No evidence of small-bow el obstruction or mucosal thickening. Scattered stool throughout the colon. Colonic diverticulosis without acute diverticulitis. No acute appendicitis. Peritoneum/mesentery/retroperitoneum. No evidence of free intraperitoneal air. No ascites. No evidence of suspicious lymphadenopathy. Abdominal Wall: Unremarkable. Vasculature: 3.6 cm infrarenal abdominal aortic aneurysm is present. There are atherosclerotic calcifications in the aorta. Urinary Bladder: There are multiple bladder stones measuring up to 11 mm. Pelvic Organs: Prostate 5.3 cm. Musculoskeletal: There is acute appearing T11 fracture. Multilevel lumbar spondylosis. IMPRESSION: 1. Colonic diverticulosis without acute diverticulitis. 2. Acute appearing T11 fracture without significant height loss. 3. 3.6 cm infrarenal abdominal aortic aneurysm. 4. Prostatomegaly. 5. Bladder stones. 6. Cholelithiasis. 7. Colonic diverticulosis without acute diverticulitis. SEPSIS Sepsis Screen Date sepsis recognized/suspect: Aug 09, 2025 Time Sepsis recognized/suspect: 824 Recent Procedure: No On Antibiotic Therapy: No Respiratory Rate >20: No Heart Rate >90: No Temp<36 C (96.8 F) or >38.3 C: No SBP <90 or MAP <65 mmHG: No New Acute Mental Status Change: No Is the patient on CPAP, BIPAP,: No Physician Orders Chest Portable (08/09/25 08:29) Urinalysis (08/09/25 08:29) Ct Ab Pel Wo Con-No Oral Or Iv (08/09/25 08:29) Admit (08/09/25 13:33) Code Status (08/09/25:33) 2 Gm Sodium Diet (08/09/25 Dinner) Hydrocodone-Acet 5/325mg Tab ([place] 5/32 (08/09/25 13:45) Ondansetron Hcl (Zofran) (08/09/25 13:45) Docusate Sodium Capsule (Colace Capsule) (08/09/25 13:45) Fall Risk Precautions In Place QSHIFT (08/09/25 13:33) Complete Blood Count (08/10/25 04:00) Comprehensive Metabolic Panel (08/10/25 04:00) Pt Request For Service (08/09/25 13:33) Condition: Serious (08/09/25 13:33) Acetaminophen Tablet (Tylenol Tablet) (08/09/25 13:45) Nitroglycerin Sublingual (Ntrostat Subli (08/09/25 13:45) Morphine Sulfate Injection (08/09/25 13:45) Stat Ekg For Chest Pain (08/09/25 13:33) Notify Md Of Changes From Base (08/09/25 13:33) Auto Machinist For 24 Hours (08/09/25 13:33) Emergency Dysrhythmia Protocol (08/09/25 13:33) Rhythm Strips Once Every Shift (08/09/25 13:33) Oxygen By Nasal Cannula (08/09/25 13:33) Vital Signs Date Time Temp Pulse Resp B/P (MAP) Pulse Ox O2 Delivery O2 Flow Rate FiO2 08/09/25 12:39 69 14 165/70 (101) 96 08/09/25 10:08 60 18 155/66 08/09/25 10:05 97.7 60 16 155/66 (95) 94 97.7 08/09/25 10:05 60 16 94 Room Air 08/09/25 08:43 87 08/09/25 08:31 87 08/09/25 08:30 98.3 90 18 183/77 94 98.3 Laboratory Tests Test 08/09/25 08:50 White Blood Count 10.8 10^3/uL (4.4-10.8) Medications Medications Dose Ordered Sig/Taz Route Start Time Stop Time Status Last Admin Dose Admin Morphine Sulfate 2 mg ONCE ONCE IM 08/09/25 09:45 08/09/25 09:46 DC 08/09/25 10:08 2 MG Ondansetron HCl 4 mg ONCE ONCE IV 08/09/25 09:45 08/09/25 09:46 DC 08/09/25 09:56 4 MG Assessment/Plan Assessment/Plan Assessment: Thoracic spine fracture, Intractable pain, Bladder stones, Intrarenal abdominal aortic aneurysm, Diverticulosis, Gallstones, Hyperlipidemia, BPH, Plan: Admit to Tele, Consult Dr. Hahn, IV steroids, Pain management, Antihypertensives, Antiemetics, Home medications reconciled, Plan discussed with: Patient, Spouse, Son My Orders Orders - DANIELLE WALL Procedure Category Date Status Time Admit ADMIT 08/09/25 Transmitted 13:33 Code Status CODE 08/09/25 Transmitted 13:33 2 Gm Sodium Diet DIET 08/09/25 Transmitted Dinner Hydrocodone-Acet PHA 08/09/25 Logged 5/325mg Tab ([place] 13:45 Ondansetron Hcl PHA 08/09/25 Logged (Zofran) 13:45 Docusate Sodium PHA 08/09/25 Logged Capsule (Colace 13:45 Fall Risk Precautions MAGGIE 08/09/[address] 13:33 Complete Blood Count LAB 08/10/25 Verified 04:00 Comprehensive LAB 08/10/25 Verified Metabolic Panel 04:00 Pt Request For Service PT 08/09/25 Logged 13:33 Condition: Serious MAGGEI 08/09/25 In Process 13:33 Acetaminophen Tablet PHA 08/09/25 Transmitted (Tylenol Tablet) 13:45 Nitroglycerin [facility] 08/09/25 Transmitted Sublingual (Ntrostat 13:45 Morphine Sulfate PHA 08/09/25 Transmitted Injection 13:45 Stat Ekg For Chest [facility] 08/09/25 In Process Pain 13:33 Notify Md Of Changes [facility] 08/09/25 In Process From Base 13:33 Auto Machinist For [facility] 08/09/25 In Process 24 Hours 13:33 Emergency Dysrhythmia [facility] 08/09/25 In Process Protocol 13:33 Rhythm Strips Once [facility] 08/09/25 In Process Every Shift 13:33 Oxygen By Nasal RT 08/09/25 Transmitted Cannula 13:33 Date of Service: Aug 09, 2025 Billing Provider: DANIELLE WALL Common Visit Codes: [id number] INP/OBS CARE (MOD) DANIELLE WALL Aug 09, 2025 14:33
--- NOTE | 2025-08-09 15:07 | DVH ---
US AAA SCREENING HISTORY: infrarenal abdominal aortic aneurysm COMPARISON: None TECHNIQUE: Transverse and longitudinal sonographic images were obtained of the abdominal aorta and co mmon iliac arteries with additional color and spectral doppler images of the abdominal aorta. FINDINGS: Measurements of the abdominal aorta and iliac arteries in maximal dimensions: Upper Abdominal Aorta: 2.1 x 2.4 cm Mid Abdominal Aorta: 3.3 x 3.9 cm Distal Abdominal Aorta: 3.2 x 3.7 cm Right common iliac Artery: Not seen Left common iliac Artery: Not seen Other: None IMPRESSION: AAA measures 3.3 x 3.9 cm.
--- NOTE | 2025-08-09 15:09 | DVH ---
CLINICAL HISTORY: FLANK PAIN TECHNIQUE: Complete ultrasound exam of the kidneys and bladder was performed. COMPARISON: US AAA SCREENING on DOS: 08/09/25 FINDINGS: The right kidney has normal echogenicity and measures 11.2 cm. There is a 5.3 cm cyst with no evidenc e for stone. There is no hydronephrosis. The left kidney has normal echogenicity and measures 10.6 cm. There is a 2.9 cm cyst with no evidenc e for stone. There is no hydronephrosis. The bladder contains a 1.7 cm stone. The prostate gland is moderately enlarged, measuring 5.5 x 4.6 x 6.6 cm. IMPRESSION: Location bilateral simple renal cysts. 1.7 cm bladder stone. Moderate prostatomegaly.
--- NOTE | 2025-08-09 15:26 | DVH ---
CLINICAL INFORMATION: Bilateral rib pain status post fall injury. TECHNIQUE: Axial CT imaging of the chest was performed without IV contrast. Sagittal and coronal ref ormatted images were made, stored and reviewed. Evaluation is limited without IV contrast. One or mor e of the following dose reduction techniques were used: Automated exposure control. Adjustment of mA and/or kV according to patient size. CTDIvol = 17.43 mGy DLP = 673.94 mGy-cm COMPARISON: XY CHEST PORTABLE on DOS: 08/09/25 FINDINGS: Aorta: Moderate atherosclerotic calcification. No thoracic aortic aneurysm. Cardiac: Heart size is within normal limits. Dense coronary artery calcification and/or stents. Mediastinum/ancelmo: Mildly prominent right lower paratracheal lymph node measures up to 1 cm in short a xis, most likely reactive. Lungs: Moderate emphysematous changes. No pneumothorax or pleural effusion. There are a few scattered small ground-glass opacities, which are nonspecific, may be a infectious or inflammatory in nature. Mild contusions can not be excluded in the setting of trauma. No dense consolidation. There are a fe w scattered small pulmonary micro nodules, with the largest measuring up to 5 mm in the right lower l obe (series 3, image 40). Pulmonary arteries: Prominence of the right main pulmonary artery, measuring up to 3.1 cm in diameter , may be seen with pulmonary arterial hypertension in the appropriate clinical setting. Chest wall: No mass or other abnormality. Upper abdomen: Hepatic steatosis. Partially visualized cyst in the right kidney measuring up to 4.8 c m. Left renal cyst measures up to 2 cm. Dense atherosclerotic calcification of the visualized portion s of the abdominal aorta. Small hiatal hernia. Bones: Compression burst fracture of the T10 vertebral body with up to 30% loss of height and deformi ty at its inferior endplate, appears acute or subacute. There is mild retropulsion of the posterior c ortex. No definite acute rib fracture identified. IMPRESSION: 1. Acute or subacute appearing burst fracture of the T10 vertebral body with mild retropulsion of the posterior cortex. 2. No other acute fracture identified in the chest. 3. Scattered small areas of mild ground-glass attenuation, may be infectious or inflammatory in natur e or due to mild contusions in the athe setting of trauma. 4. Emphysematous changes. 5. Pulmonary micro nodules. Correlate with patient risk factors for lung cancer. If the patient is high risk, CT chest in 12 months could be considered per Fleischner Society recommendations. 6. Likely reactive right lower paratracheal lymph node. 7. Dilated main right pulmonary artery, may be seen with pulmonary arterial hypertension in the appro priate clinical setting. Correlate with clinical findings. 8. Additional findings as detailed above.
[2025-08-09 16:36] VITALS: BP 173/83; PULSE 90; RESP 18; TEMP 98.4; O2SAT 94
[2025-08-09 16:45] VITALS: BP 173/83; PULSE 90; RESP 18; TEMP 98.4; O2SAT 94
[2025-08-09] MEDS: hydrALAZINE HCL 20 MG/ML VL IV PRN (18:03)
[2025-08-09] MEDS: methylPREDNISolone SOD SUCC 40 MG/ML VL IM ONE (18:04)
[2025-08-09 18:30] VITALS: BP 148/72; PULSE 91
[2025-08-09 20:00] VITALS: PULSE 74; RESP 18; O2SAT 97
[2025-08-09 21:00] VITALS: BP 151/76; PULSE 65; RESP 18; TEMP 98; O2SAT 95
[2025-08-09] MEDS: HYDROcodone-ACET 5/325MG TAB PO PRN (21:51)
[2025-08-09] MEDS: ATORVASTATIN 20 MG TAB PO SCH (21:51)
[2025-08-10] VITALS (9 sets, daily range): BP systolic 108–189; BP diastolic 61–81; PULSE 53–88; RESP 16–18; TEMP 97.6–98.7; O2SAT 93–97
[2025-08-10 06:27] LABS: Hematocrit 43.2 % (41.0-53.0); Hemoglobin 15.0 g/dL (13.5-17.5); Mean Corpuscular Hemoglobin 33.2 pg (28.0-32.0); Mean Corpuscular Volume 95.7 fL (80.0-100.0); Nucleated Red Blood Cells % 0.0 %
[2025-08-10 06:47] LABS: Alanine Aminotransferase 29 U/L (7-40); Albumin 4.2 g/dL (3.2-4.8); Alkaline Phosphatase 63 U/L (46-116); Anion Gap 7 (5-15); BUN/Creatinine Ratio 12.2 (10.0-20.0); Blood Urea Nitrogen 12 mg/dL (9-23); Calcium 9.0 mg/dL (8.7-10.4); Carbon Dioxide 27 mmol/L (20-31); Chloride 105 mmol/L (98-107); Potassium 3.8 mmol/L (3.5-5.1); Sodium 139 mmol/L (136-145); Total Protein 7.7 g/dL (5.7-8.2)
[2025-08-10 06:59] LABS: Bilirubin, Total 1.8 mg/dL (0.2-1.0); Glucose 136 mg/dL (74-106)
[2025-08-10] MEDS: methylPREDNISolone SOD SUCC 40 MG/ML VL IV SCH (09:42)
--- NOTE | 2025-08-10 12:07 | DVHPN2 ---
Reviewed: Care Plan, H&P, Labs, Medications, Previous Orders, Radiology Changes from previous H/P or p: No Changes Eyes: No Pain, No Vision change, No Conjunctivae inflammation, No Eyelid inflammation, No Other, No Redness ENT: No Ear pain, No Ear discharge, No Nose pain, No Nose discharge, No Nose congestion, No Mouth pain, No Mouth swelling, No Throat pain, No Throat swelling, No Other Cardiovascular: No Chest Pain, No Palpitations, No Orthopnea, No Paroxysmal Noc. Dyspnea, No Edema, No Lt Headedness, No Other Respiratory: No Cough, No Dry, No Shortness of breath, No SOB with excertion, No Wheezing, No Hemoptysis, No Pleuritic Pain, No Sputum, No Other Gastrointestinal: No Nausea, No Vomiting; Abdominal Pain (severe right and left abdominal/rib pain); No Diarrhea, No Constipation, No Melena, No Hematochezia, No Other Genitourinary: No Dysuria, No Frequency, No Incontinence, No Hematuria, No Retention, No Other Musculoskeletal: No other, No neck pain, No shoulder pain, No arm pain, No back pain, No hand pain, No leg pain, No foot pain Skin: No Rash, No Lesions, No Jaundice, No Bruising, No Other Objective Vitals Vital Signs Date Time Temp Pulse Resp B/P (MAP) Pulse Ox O2 Delivery O2 Flow Rate FiO2 08/10/25 09:42 163/89 08/10/25 08:35 97.6 75 17 94 97.6 08/10/25 08:00 Room Air* 0 21 Intake/Output Intake and Output 08/10/25 07:00 Intake Total 200 ml Output Total 700 ml Balance -500 ml Intake Oral 200 ml Output Urine Total 700 ml Medications Current Medications Medications Dose Ordered Sig/Taz Route Start Time Stop Time Status Last Admin Dose Admin Acetaminophen/ Hydrocodone Bitart 1 tab Q4HP PRN PO 08/09/25 13:45 08/10/25 09:41 1 TAB Ondansetron HCl 4 mg Q4HP PRN IV 08/09/25 13:45 Docusate Sodium 100 mg BIDPRN PRN PO 08/09/25 13:45 Acetaminophen 650 mg Q6HP PRN PO 08/09/25 13:45 Nitroglycerin 0.4 mg Q5MINP PRN SL 08/09/25 13:45 Morphine Sulfate 2 mg Q30M PRN IV 08/09/25 13:45 Tamsulosin HCl 0.4 mg DAILY@1800 PO 08/10/25 18:00 Atorvastatin Calcium 40 mg HS PO 08/09/25 22:00 08/09/25 21:51 40 MG Hydralazine HCl 10 mg Q6HP PRN IV 08/09/25 17:45 08/10/25 09:42 10 MG Methylprednisolone Sodium Succinate 40 mg DAILY IV 08/10/25 10:00 08/10/25 09:42 40 MG Laboratory Results Laboratory Tests 08/10/25 05:19 Chemistry Test 08/10/25 05:19 Albumin 4.2 g/dL (3.2-4.8) Calcium Level 9.0 mg/dL (8.7-10.4) Total Protein 7.7 g/dL (5.7-8.2) LFT Test 08/10/25 05:19 Alanine Aminotransferase (ALT) 29 U/L (7-40) Alkaline Phosphatase 63 U/L (46-116) Aspartate Amino Transferase (AST) 34 U/L (13-40) Total Bilirubin 1.8 mg/dL (0.2-1.0) H Labs and/or images reviewed: Labs reviewed by me, Image(s) reviewed by me Assessment/Plan Assessment/Plan Acute low back pain T11 compression fracture: Consult by spine surgeon Mechanical fall Intractable pain, 1.7 cm Bladder stones, consult by Urology Intrarenal abdominal aortic aneurysm, 3.6 cm: Observe, consult for patient's senior electrical design engineer Dr. Hahn Diverticulosis, Gallstones, Hyperlipidemia, BPH, Current smoker: Counseling Chronic current alcohol abuse: Counseling Hypercholesterolemia Time spent 70 minutes Advanced care planning 20 minutes Patient is full code Plan discussed with: Patient My Orders Orders - DIANNA ZAMBRANO MD Procedure Category Date Status Time Drug Screen LAB 08/10/25 Logged 11:59 Blood Alcohol LAB 08/10/25 Logged 11:59 * Orthopedic Consult CONS 08/10/25 Transmitted 12:01 Date of Service: Aug 10, 2025 Billing Provider: DIANNA ZAMBRANO MD Common Visit Codes: [id number] CARE 30-74 MIN DIANNA ZAMBRANO MD Aug 10, 2025 12:07
[2025-08-10] MEDS: MORPHINE SULFATE INJ 2 MG/ml SYRG IV PRN (12:45)
--- NOTE | 2025-08-10 13:01 | DVHPN2 ---
Progress Note - Dictate Date Seen: Aug 09, 2025 Medical Necessity Reason Pt with a Central, PICC or Fol: No Subjective PT WITH MECHANICAL FALL NOW WITH BILATERAL FLANK PAIN HX OF BPH HX OF HTN CT OF CHEST MICRO PUL NODULES COPD CT OF PELVIS CHOLELITHIASIS T12 COMPRESSION FRACTURE BLADDER STONE AAA 3.6 CM DIVERTICULOSIS vital signs Vital Sign Date Time Temp Pulse Resp B/P (MAP) Pulse Ox O2 Delivery O2 Flow Rate FiO2 08/10/25 12:45 85 17 191/97 08/10/25 08:35 97.6 94 97.6 08/10/25 08:00 Room Air* 0 21 Total Intake and Output 08/09/25 08/09/25 08/10/25 15:00 23:00 07:00 Intake Total 0 ml 200 ml Output Total 300 ml 400 ml Balance -300 ml -200 ml medications Current Medications Medications Dose Ordered Sig/Taz Route Start Time Stop Time Status Last Admin Dose Admin Acetaminophen/ Hydrocodone Bitart 1 tab Q4HP PRN PO 08/09/25 13:45 08/10/25 09:41 1 TAB Ondansetron HCl 4 mg Q4HP PRN IV 08/09/25 13:45 Docusate Sodium 100 mg BIDPRN PRN PO 08/09/25 13:45 Acetaminophen 650 mg Q6HP PRN PO 08/09/25 13:45 Nitroglycerin 0.4 mg Q5MINP PRN SL 08/09/25 13:45 Morphine Sulfate 2 mg Q30M PRN IV 08/09/25 13:45 Tamsulosin HCl 0.4 mg DAILY@1800 PO 08/10/25 18:00 Atorvastatin Calcium 40 mg HS PO 08/09/25 22:00 08/09/25 21:51 40 MG Hydralazine HCl 10 mg Q6HP PRN IV 08/09/25 17:45 08/10/25 09:42 10 MG Methylprednisolone Sodium Succinate 40 mg DAILY IV 08/10/25 10:00 08/10/25 09:42 40 MG Morphine Sulfate 2 mg Q4HPRN PRN IV 08/10/25 12:30 08/10/25 12:45 2 MG Clonidine HCl 0.2 mg Q6HP PRN PO 08/10/25 12:30 08/10/25 12:44 0.2 MG laboratory and microbiology Laboratory Tests 08/10/25 05:19 Test 08/10/25 05:19 Range/Units Serum Glucose 136 H 74-106 mg/dL Problem List MECHANICAL FALL NOW WITH BILATERAL FLANK PAIN HX OF BPH HX OF HTN CT OF CHEST MICRO PUL NODULES COPD CT OF PELVIS CHOLELITHIASIS T12 COMPRESSION FRACTURE BLADDER STONE AAA 3.6 CM DIVERTICULOSIS Assessment/Plan PT PAIN MANAGEMENT Plan discussed with: Patient BORIS WARD MD Aug 10, 2025 13:01
--- NOTE | 2025-08-10 13:23 | DVHINCON2 ---
Consultation - Spinal Surgery Date Seen: Aug 11, 2025 Referring Physician Referring Physician Attending Doctor: Varun Theodore MD Reason for Consultation Reason for Visit: S/P fall COMPRESSION FRACTURE History of Present Illness History of Present Illness History of Present Illness Darrell Valdez is an 89-year-old male with past medical history of hyperlipidemia and BPH who came to the hospital for bilateral flank/side pain S/P fall. This morning at 0200 the patient woke up and got out of bed to use the bathroom. As he got up he fell hitting the right side of his body Past Medical/Surgical History Past Medical/Surgical History Cardiovascular: hyperlipidemia Renal/: Benign prostatic enlarged. Family and Social History Family and Social History Smoke: <1 pack per day (Occasional cigars) ALCOHOL: heavy (daily ) Drugs: None Lives: with Family Domestic Violence: Neg Allergies and medications Allergies: Coded Allergies: Penicillins (Verified Allergy, Unknown, 12/09/17) Home Meds Reported Medications Alfuzosin Hydrochloride (ALFUZOSIN HCL ER) 10 Mg Tab, 1 TAB PO DAILY 08/09/25 Atorvastatin Calcium (ATORVASTATIN CALCIUM) 40 Mg Tab, 1 TAB PO HS 08/09/25 Review of systems Review of Systems: MSK:Normal, NEURO:Normal Examination Vital signs Imaging ORDERING PHYSICIAN: ROSEANN MCKENNA FOOD P[employer]TER PROCEDURE(s): MST4 - THORACIC SPINE WITHOUT REASON: determine, compression burst fx T10 ORDER NUMBER(s): [id number], ACCESSION NUMBER(s): [id number] EXAM: MRI THORACIC SPINE WITHOUT INDICATION: determine, compression burst fx T10 TECHNIQUE: Multiplanar, multisequence imaging of the thoracic spine without contrast. COMPARISON: CT CHEST WITHOUT CONTRAST on DOS: 08/09/25 FINDINGS: [ANATOMY]: Mild thoracic kyphosis [BONES]: Acute primarily inferior endplate compression deformity with subsequent inferior endplate concavity. Associated significant bone marrow edema. Inconspicuous 2 mm posterior vertebral body retropulsion trace bone marrow edema extending along bilateral pedicles of the area of fracture involving T10. Overall imaging pattern compatible with burst fracture. Subsequent buckling of the posterior ligamentum flavum which may be seen in the setting of axial loading at T10-11. [CORD]: Normal cord signal. [SPINAL CANAL]: Inconspicuous effacement of the ventral thecal sac posterior to T10 [INTERVERTEBRAL DISCS]: Diffuse disc desiccation. [FACETS]: Normal alignment of the facets. [FORAMINA]: Subsequent relative bony foraminal narrowing at T10-11 [OTHER]: Minimal anterior paraspinous soft tissue edema IMPRESSION: 1. Burst fracture primarily involving the inferior endplate of T10 and subsequent 2 mm posterior vertebral body retropulsion. 2. Effacement of the ventral and dorsal thecal sacs with the associated ligamentum flavum buckling. 3. Subsequent bilateral T10-11 foraminal narrowing. 4. Upper thoracic kyphosis. ORDERING PHYSICIAN: DANIELLE WALL BREEDER HEN SERVICE TECHNICIAN PROCEDURE(s): CX2CT - CHEST WITHOUT CONTRAST REASON: bilateral rib pain, S/P fall ORDER NUMBER(s): [id number], ACCESSION NUMBER(s): [id number] CLINICAL INFORMATION: Bilateral rib pain status post fall injury. TECHNIQUE: Axial CT imaging of the chest was performed without IV contrast. Sagittal and coronal reformatted images were made, stored and reviewed. Evaluation is limited without IV contrast. One or more of the following dose reduction techniques were used: Automated exposure control. Adjustment of mA and/or kV according to patient size. CTDIvol = 17.43 mGy DLP = 673.94 mGy-cm COMPARISON: XY CHEST PORTABLE on DOS: 08/09/25 FINDINGS: Aorta: Moderate atherosclerotic calcification. No thoracic aortic aneurysm. Cardiac: Heart size is within normal limits. Dense coronary artery calcification and/or stents. Mediastinum/ancelmo: Mildly prominent right lower paratracheal lymph node measures up to 1 cm in short axis, most likely reactive. Lungs: Moderate emphysematous changes. No pneumothorax or pleural effusion. There are a few scattered small ground-glass opacities, which are nonspecific, may be a infectious or inflammatory in nature. Mild contusions can not be excluded in the setting of trauma. No dense consolidation. There are a few scattered small pulmonary micro nodules, with the largest measuring up to 5 mm in the right lower lobe (series 3, image 40). Pulmonary arteries: Prominence of the right main pulmonary artery, measuring up to 3.1 cm in diameter, may be seen with pulmonary arterial hypertension in the appropriate clinical setting. Chest wall: No mass or other abnormality. Upper abdomen: Hepatic steatosis. Partially visualized cyst in the right kidney measuring up to 4.8 cm. Left renal cyst measures up to 2 cm. Dense atherosclerotic calcification of the visualized portions of the abdominal aorta. Small hiatal hernia. Bones: Compression burst fracture of the T10 vertebral body with up to 30% loss of height and deformity at its inferior endplate, appears acute or subacute. There is mild retropulsion of the posterior cortex. No definite acute rib fracture identified. IMPRESSION: 1. Acute or subacute appearing burst fracture of the T10 vertebral body with mild retropulsion of the posterior cortex. 2. No other acute fracture identified in the chest. 3. Scattered small areas of mild ground-glass attenuation, may be infectious or inflammatory in nature or due to mild contusions in the athe setting of trauma. 4. Emphysematous changes. 5. Pulmonary micro nodules. Correlate with patient risk factors for lung cancer. If the patient is high risk, CT chest in 12 months could be considered per Fleischner Society recommendations. 6. Likely reactive right lower paratracheal lymph node. 7. Dilated main right pulmonary artery, may be seen with pulmonary arterial hypertension in the appropriate clinical setting. Correlate with clinical findings. 8. Additional findings as detailed above. Vital Signs Date Time Temp Pulse Resp B/P (MAP) Pulse Ox O2 Delivery O2 Flow Rate FiO2 08/10/25 12:45 85 17 191/97 08/10/25 08:35 97.6 94 97.6 08/10/25 08:00 Room Air* 0 21 Medications Current Medications Medications (Trade) Dose Ordered Sig/Taz Route PRN Reason Start Time Stop Time Status Last Admin Acetaminophen/ Hydrocodone Bitart ([place] 5/325MG Tab) 1 tab Q4HP PRN PO MODERATE PAIN (4-6 PAIN SCALE) 08/09/25 13:45 08/10/25 09:41 Ondansetron HCl (Zofran) 4 mg Q4HP PRN IV NAUSEA / VOMITING 08/09/25 13:45 Docusate Sodium (Colace Capsule) 100 mg BIDPRN PRN PO FOR CONSTIPATION 08/09/25 13:45 Acetaminophen (Tylenol Tablet) 650 mg Q6HP PRN PO PAIN SCALE 1-3 OR TEMP>100.4 08/09/25 13:45 Nitroglycerin (Ntrostat Sublingual) 0.4 mg Q5MINP PRN SL FOR CHEST PAIN 08/09/25 13:45 Morphine Sulfate 2 mg Q30M PRN IV FOR CHEST PAIN 08/09/25 13:45 Tamsulosin HCl (Flomax) 0.4 mg DAILY@1800 PO 08/10/25 18:00 Atorvastatin Calcium (Lipitor) 40 mg HS PO 08/09/25 22:00 08/09/25 21:51 Hydralazine HCl (Apresoline Injection) 10 mg Q6HP PRN IV SBP>150 08/09/25 17:45 08/10/25 09:42 Methylprednisolone Sodium Succinate (Solu Medrol) 40 mg DAILY IV 08/10/25 10:00 08/10/25 09:42 Morphine Sulfate 2 mg Q4HPRN PRN IV SEVERE PAIN (7-10 PAIN SCALE) 08/10/25 12:30 08/10/25 12:45 Clonidine HCl (Catapres Tablet) 0.2 mg Q6HP PRN PO SBP>150 08/10/25 12:30 08/10/25 12:44 Laboratory Labs Test 08/10/25 05:19 08/09/25 08:50 Range/Units White Blood Count 8.1 4.4-10.8 10^3/uL Red Blood Count 4.52 4.5-5.90 10^6/uL Hemoglobin 15.0 13.5-17.5 g/dL Hematocrit 43.2 41.0-53.0 % Mean Corpuscular Volume 95.7 80.0-100.0 fL Mean Corpuscular Hemoglobin 33.2 H 28.0-32.0 pg Mean Corpuscular Hemoglobin Concent 34.7 32.0-36.0 g/dL Red Cell Distribution Width 14.0 11.8-14.3 % Platelet Count 166 140-450 10^3/uL Mean Platelet Volume 7.9 6.9-10.8 fL Neutrophils (%) (Auto) 80.6 H 37.0-80.0 % Lymphocytes (%) (Auto) 11.2 10.0-50.0 % Monocytes (%) (Auto) 7.2 0.0-12.0 % Eosinophils (%) (Auto) 0.7 0.0-7.0 % Basophils (%) (Auto) 0.3 0.0-2.0 % Neutrophils # (Auto) 6.6 1.6-8.6 10 ^3/uL Lymphocytes # (Auto) 0.9 0.4-5.4 10 ^3/uL Monocytes # (Auto) 0.6 0-1.3 10 ^3/uL Eosinophils # (Auto) 0.1 0-0.8 10 ^3/uL Basophils # (Auto) 0 0-0.2 10 ^3/uL Nucleated Red Blood Cells 0.0 % Sodium Level 139 136-145 mmol/L Potassium Level 3.8 3.5-5.1 mmol/L Chloride Level 105 98-107 mmol/L Carbon Dioxide Level 27 20-31 mmol/L Anion Gap 7 5-15 Blood Urea Nitrogen 12 9-23 mg/dL Creatinine 0.98 0.700-1.30 mg/dL Glomerular Filtration Rate Calc 74 >90 mL/min BUN/Creatinine Ratio 12.2 10.0-20.0 Serum Glucose 136 H 74-106 mg/dL Calcium Level 9.0 8.7-10.4 mg/dL Total Bilirubin 1.8 H 0.2-1.0 mg/dL Aspartate Amino Transferase (AST) 34 13-40 U/L Alanine Aminotransferase (ALT) 29 7-40 U/L Alkaline Phosphatase 63 46-116 U/L Total Protein 7.7 5.7-8.2 g/dL Albumin 4.2 3.2-4.8 g/dL Troponin I High Sensitivity 11 </=54 ng/L Examination: GENERAL:Normal, HEENT:Normal, NECK:Normal, LUNGS:Normal, CVS:Normal, ABDOMEN:Normal, MSK:Abnormal (improved low back pain), SKIN:Normal, NEURO:Normal Problem List/Assessment/Plan Problems: (1) Thoracic spine fracture Assessment and Plan Compression burst fracture of the T10 vertebral body with up to 30% loss of height and deformity at its inferior endplate, appears acute or subacute. There is mild retropulsion of the posterior cortex. MRI T spine: 1. Burst fracture primarily involving the inferior endplate of T10 and subseq uent 2 mm posterior vertebral body retropulsion. 2. Effacement of the ventral and dorsal thecal sacs with the associated ligame ntum flavum buckling. 3. Subsequent bilateral T10-11 foraminal narrowing. Continue supportive care per admitting team's discretion TLSO/prefab store bought brace brace for mobilization. PT eval for treatment recommendations and DC assessment for safe discharge Muscle relaxers for any muscle spasms the patient is experiencing outpatient follow up in 8-[address] scan to eval healing. NONhealing fracture, will need referral to spine surgery for follow up No barriers to discharge from a spine surgery perspective. Call with questions Paolo Mckenna [facility] Orthopaedic Spine Surgery nurse practitioner For Dr Gunnar Parra Patient was examined, chart reviewed, labs evaluated, and diagnostic studies and findings analyzed. Case was discussed with Dr. Rudy Parra who formulated the plan of care. This medical document was created using an electronic medical record system with Drobo dictation system. Although this document has been carefully reviewed, there might still be some phonetic and typographical errors. These areas are purely typographical due to imperfections of the software programs, and do not reflect any compromise in the patient's medical care. Plan discussed with Plan discussed with: Patient, Spouse, Daughter, Son, Other (bedside nurse) ROSEANN MCKENNA NP Aug 10, 2025 13:23
--- NOTE | 2025-08-10 13:23 | DVHINCON2 ---
Date of service: Aug 10, 2025 Referring Physician Nikhil Theodore MD Reason for Consultation Bladder stones BPH History of Present Illness 89 y.o male with fall injury admitted for T10 fracture is found to have incidental bladder stones and enlarged prostate. According to the patient, he is aware of having bladder stones and has been followed by Dr. Sunny Cobb. He denies any problems with urination. Past Medical History Cancer, High Lipids BPH Bladder stone Family History: Cardiovascular disease G8 FATHER G8 BROTHER Allergies: Coded Allergies: Penicillins (Verified Allergy, Unknown, 12/09/17) Home Meds Reported Medications Alfuzosin Hydrochloride (ALFUZOSIN HCL ER) 10 Mg Tab, 1 TAB PO DAILY 08/09/25 Atorvastatin Calcium (ATORVASTATIN CALCIUM) 40 Mg Tab, 1 TAB PO HS 08/09/25 Current Medications Current Medications Medications (Trade) Dose Ordered Sig/Taz Route PRN Reason Start Time Stop Time Status Last Admin Acetaminophen/ Hydrocodone Bitart ([place] 5/325MG Tab) 1 tab Q4HP PRN PO MODERATE PAIN (4-6 PAIN SCALE) 08/09/25 13:45 08/10/25 09:41 Ondansetron HCl (Zofran) 4 mg Q4HP PRN IV NAUSEA / VOMITING 08/09/25 13:45 Docusate Sodium (Colace Capsule) 100 mg BIDPRN PRN PO FOR CONSTIPATION 08/09/25 13:45 Acetaminophen (Tylenol Tablet) 650 mg Q6HP PRN PO PAIN SCALE 1-3 OR TEMP>100.4 08/09/25 13:45 Nitroglycerin (Ntrostat Sublingual) 0.4 mg Q5MINP PRN SL FOR CHEST PAIN 08/09/25 13:45 Morphine Sulfate 2 mg Q30M PRN IV FOR CHEST PAIN 08/09/25 13:45 Tamsulosin HCl (Flomax) 0.4 mg DAILY@1800 PO 08/10/25 18:00 Atorvastatin Calcium (Lipitor) 40 mg HS PO 08/09/25 22:00 08/09/25 21:51 Hydralazine HCl (Apresoline Injection) 10 mg Q6HP PRN IV SBP>150 08/09/25 17:45 08/10/25 09:42 Methylprednisolone Sodium Succinate (Solu Medrol) 40 mg DAILY IV 08/10/25 10:00 08/10/25 09:42 Morphine Sulfate 2 mg Q4HPRN PRN IV SEVERE PAIN (7-10 PAIN SCALE) 08/10/25 12:30 08/10/25 12:45 Clonidine HCl (Catapres Tablet) 0.2 mg Q6HP PRN PO SBP>150 08/10/25 12:30 08/10/25 12:44 Review of Systems Constitutional: denies: chills, diaphoresis, fatigue, fever, malaise, sweats, weakness, others EENTM: denies: blurred vision, double vision, ear bleeding, ear discharge, ear drainage, ear pain, ear ringing, eye pain, eye redness, hearing loss, mouth pain, mouth swelling, nasal discharge, nose bleeding, nose congestion, nose pa in, photophobia, tearing, throat pain, throat swelling, voice changes, others Respiratory: denies: cough, hemoptysis, orthopnea, SOB at rest, shortness of breath, SOB with excertion, stridor, wheezing, others Cardiovascular: denies: chest pain, dizzy spells, diaphoresis, Dyspnea on exertion, edema, irregular heart beat, left arm pain, lightheadedness, palpitations, PND, syncope, others Gastrointestinal: denies: abdomen distended, abdominal pain, blood streaked bowels, constipated, diarrhea, dysphagia, difficulty swallowing, hematemesis, melena, nausea, poor appetite, poor fluid intake, rectal bleeding, rectal pain, vomiting, others Genitourinary: denies: burning, dysuria, flank pain, frequency, hematuria, incontinence, penile discharge, penile sore, pain, testicle pain, testicle swelling, urgency, others Neurological: denies: dizziness, fainting, headache, left sided numbness, left sided weakness, numbness, paresthesia, pre-existing deficit, right sided numbness, right sided weakness, seizure, speech problems, tingling, tremors, weakness, others Musculoskeletal: reports: others (bilateral rib pain); denies: back pain, gout, joint pain, joint swelling, muscle pain, muscle stiffness, neck pain Integumetry: denies: bruises, change in color, change in hair/nails, dryness, laceration, lesions, lumps, rash, wounds, others Allergic/Immunocompromised: denies: Difficulty Healing, Frequent Infections, Hives, Itching, others Hematologic/Lymphatic: denies: anemia, blood clots, easy bleeding, easy bruising, swollen glands, others Endocrine: denies: excessive hunger, excessive sweating, excessive thirst, excessive urination, flushing, intolerance to cold, intolerance to heat, unexplained weight gain, unexplained weight loss, others Psychiatric: denies: anxiety, bipolar disorder, depression, hopeless, panic disorder, schizophrenia, sleepless, suicidal, others All Other Systems: Reviewed and Negative Vital Signs Vital Signs Date Time Temp Pulse Resp B/P (MAP) Pulse Ox O2 Delivery O2 Flow Rate FiO2 08/10/25 12:45 85 17 191/97 08/10/25 08:35 97.6 94 97.6 08/10/25 08:00 Room Air* 0 21 Physical Exam General Appearance: Moderate Distress HEENT: Normal ENT Inspection, Pharynx Normal, TMs Normal Neck: Full Range of Motion, Non-Tender, Normal, Normal Inspection Respiratory: Chest Non-Tender, Lungs Clear, No Accessory Muscle Use, No Respiratory Distress, Normal Breath Sounds Cardiovascular: No Edema, No JVD, No Murmur, No Gallop, Normal Peripheral Pulses, Regular Rate/Rhythm Breast Exam: Deferred Gastrointestinal: No Organomegaly, Non Tender, No Pulsatile Mass, Normal Bowel Sounds, Soft Genitalia: Deferred Pelvic: Deferred Rectal: Deferred Extremities: No calf tenderness, Normal capillary refill, Normal inspection, Normal range of motion, Non-tender, No pedal edema Musculoskeletal : Apperance: Normal Neurologic: Alert, collar band creaser II-XII nml as Tested, No Motor Deficits, Normal Affect, Normal Mood, No Sensory Deficits Cerebellar Function: NOT DONE Reflexes: NOT DONE Skin: Dry, Normal Color, Warm, Wounds (Right elbow skin tear) Peripheral Pulses: 3+ Radial (R), 3+ Radial (L) Lymphatic: No Adenopathy Labs/Diagnostic Data Labs Test 08/10/25 05:19 08/09/25 08:50 Range/Units White Blood Count 8.1 4.4-10.8 10^3/uL Red Blood Count 4.52 4.5-5.90 10^6/uL Hemoglobin 15.0 13.5-17.5 g/dL Hematocrit 43.2 41.0-53.0 % Mean Corpuscular Volume 95.7 80.0-100.0 fL Mean Corpuscular Hemoglobin 33.2 H 28.0-32.0 pg Mean Corpuscular Hemoglobin Concent 34.7 32.0-36.0 g/dL Red Cell Distribution Width 14.0 11.8-14.3 % Platelet Count 166 140-450 10^3/uL Mean Platelet Volume 7.9 6.9-10.8 fL Neutrophils (%) (Auto) 80.6 H 37.0-80.0 % Lymphocytes (%) (Auto) 11.2 10.0-50.0 % Monocytes (%) (Auto) 7.2 0.0-12.0 % Eosinophils (%) (Auto) 0.7 0.0-7.0 % Basophils (%) (Auto) 0.3 0.0-2.0 % Neutrophils # (Auto) 6.6 1.6-8.6 10 ^3/uL Lymphocytes # (Auto) 0.9 0.4-5.4 10 ^3/uL Monocytes # (Auto) 0.6 0-1.3 10 ^3/uL Eosinophils # (Auto) 0.1 0-0.8 10 ^3/uL Basophils # (Auto) 0 0-0.2 10 ^3/uL Nucleated Red Blood Cells 0.0 % Sodium Level 139 136-145 mmol/L Potassium Level 3.8 3.5-5.1 mmol/L Chloride Level 105 98-107 mmol/L Carbon Dioxide Level 27 20-31 mmol/L Anion Gap 7 5-15 Blood Urea Nitrogen 12 9-23 mg/dL Creatinine 0.98 0.700-1.30 mg/dL Glomerular Filtration Rate Calc 74 >90 mL/min BUN/Creatinine Ratio 12.2 10.0-20.0 Serum Glucose 136 H 74-106 mg/dL Calcium Level 9.0 8.7-10.4 mg/dL Total Bilirubin 1.8 H 0.2-1.0 mg/dL Aspartate Amino Transferase (AST) 34 13-40 U/L Alanine Aminotransferase (ALT) 29 7-40 U/L Alkaline Phosphatase 63 46-116 U/L Total Protein 7.7 5.7-8.2 g/dL Albumin 4.2 3.2-4.8 g/dL Troponin I High Sensitivity 11 </=54 ng/L PATIENT: LUCINDA JULIAN ACCT: [id number] UNIT: [id number] : 1935 LOC: ER ROOM / BED: / AGE / SEX: 89 / M ADM STATUS: REG ER SERVICE [id number] ORDERING PHYSICIAN: HOME GONZALES MD PROCEDURE(s): ABPL - CT AB PEL WO CON-NO ORAL OR IV REASON: colon ORDER NUMBER(s): [id number], ACCESSION NUMBER(s): [id number] Exam: CT CT AB PEL WO CON-NO ORAL OR IV History: Colon Comparison Study: [facility] on DOS: 10/31/22 Technique: Multidetector spiral CT of the abdomen and pelvis was performed from lung bases to pubic symphysis. Imaging was performed without intravenous contrast. Coronal and sagittal multiplanar reformats were obtained from the axial data set by the technologist. Radiation Dose : 1. Abdomen/Pelvis: CTDIvol 12.33 mGy, DLP 761.1 mGy*cm. Findings: Evaluation of vasculature and solid organs is limited due to lack of intravenous contrast use. Lung Bases: Lung bases are clear. Visualized portions of the heart and peric ardium are unremarkable. Liver: The liver is normal in size. Calcification versus metallic density noted in the inferior right hepatic lobe. Gallbladder and Biliary Tree: Multiple gallstones. No intrahepatic or extrahepatic biliary ductal dilatation. Spleen: Unremarkable Pancreas: The pancreas is grossly unremarkable. Adrenal Glands: Unremarkable Kidneys: Kidneys are unremarkable without calculi or hydronephrosis. Bilateral renal cysts. GI tract: The stomach is grossly normal in appearance. No evidence of small- bowel obstruction or mucosal thickening. Scattered stool throughout the colon. Colonic diverticulosis without acute diverticulitis. No acute appendicitis. Peritoneum/mesentery/retroperitoneum. No evidence of free intraperitoneal air. N o ascites. No evidence of suspicious lymphadenopathy. Abdominal Wall: Unremarkable. Vasculature: 3.6 cm infrarenal abdominal aortic aneurysm is present. There are atherosclerotic calcifications in the aorta. Urinary Bladder: There are multiple bladder stones measuring up to 11 mm. Pelvic Organs: Prostate 5.3 cm. Musculoskeletal: There is acute appearing T11 fracture. Multilevel lumbar spondylosis. IMPRESSION: 1. Colonic diverticulosis without acute diverticulitis. 2. Acute appearing T11 fracture without significant height loss. 3. 3.6 cm infrarenal abdominal aortic aneurysm. 4. Prostatomegaly. 5. Bladder stones. 6. Cholelithiasis. 7. Colonic diverticulosis without acute diverticulitis. ATED BY: SARA GUZMAN MD DICTATED DATE/TIME: 08/09/25925 SIGNED BY: SARA GUZMAN MD SIGNED DATE/TIME: 08/09/25925 CC: Assessment T10 Fracture Bladder stones BPH AAA Plan/Recommendation Bladder stones and BPH management can be done as outpatient with Dr. Sunny Cobb, patient's urologist. Plan discussed with: Patient, Other АННА FERRER MD Aug 10, 2025 13:23
--- NOTE | 2025-08-10 15:04 | DVH ---
EXAM: MRI THORACIC SPINE WITHOUT INDICATION: determine, compression burst fx T10 TECHNIQUE: Multiplanar, multisequence imaging of the thoracic spine without contrast. COMPARISON: CT CHEST WITHOUT CONTRAST on DOS: 08/09/25 FINDINGS: [ANATOMY]: Mild thoracic kyphosis [BONES]: Acute primarily inferior endplate compression deformity with subsequent inferior endplate co ncavity. Associated significant bone marrow edema. Inconspicuous 2 mm posterior vertebral body retro pulsion trace bone marrow edema extending along bilateral pedicles of the area of fracture involving T10. Overall imaging pattern compatible with burst fracture. Subsequent buckling of the posterior lig amentum flavum which may be seen in the setting of axial loading at T10-11. [CORD]: Normal cord signal. [SPINAL CANAL]: Inconspicuous effacement of the ventral thecal sac posterior to T10 [INTERVERTEBRAL DISCS]: Diffuse disc desiccation. [FACETS]: Normal alignment of the facets. [FORAMINA]: Subsequent relative bony foraminal narrowing at T10-11 [OTHER]: Minimal anterior paraspinous soft tissue edema IMPRESSION: 1. Burst fracture primarily involving the inferior endplate of T10 and subsequent 2 mm posterior vert ebral body retropulsion. 2. Effacement of the ventral and dorsal thecal sacs with the associated ligamentum flavum buckling. 3. Subsequent bilateral T10-11 foraminal narrowing. 4. Upper thoracic kyphosis.
[2025-08-10] MEDS: TAMSULOSIN HYDROCHLORIDE 0.4 MG CAP PO SCH (18:17)
[2025-08-11] VITALS (7 sets, daily range): BP systolic 106–136; BP diastolic 62–78; PULSE 54–81; RESP 17–18; TEMP 97–98.1; O2SAT 95–97
--- NOTE | 2025-08-11 13:21 | DVHPN2 ---
Reviewed: Care Plan, H&P, Labs, Medications, Previous Orders, Radiology Changes from previous H/P or p: No Changes Eyes: No Pain, No Vision change, No Conjunctivae inflammation, No Eyelid inflammation, No Other, No Redness ENT: No Ear pain, No Ear discharge, No Nose pain, No Nose discharge, No Nose congestion, No Mouth pain, No Mouth swelling, No Throat pain, No Throat swelling, No Other Cardiovascular: No Chest Pain, No Palpitations, No Orthopnea, No Paroxysmal Noc. Dyspnea, No Edema, No Lt Headedness, No Other Respiratory: No Cough, No Dry, No Shortness of breath, No SOB with excertion, No Wheezing, No Hemoptysis, No Pleuritic Pain, No Sputum, No Other Gastrointestinal: No Nausea, No Vomiting; Abdominal Pain (severe right and left abdominal/rib pain); No Diarrhea, No Constipation, No Melena, No Hematochezia, No Other Genitourinary: No Dysuria, No Frequency, No Incontinence, No Hematuria, No Retention, No Other Musculoskeletal: No other, No neck pain, No shoulder pain, No arm pain, No back pain, No hand pain, No leg pain, No foot pain Skin: No Rash, No Lesions, No Jaundice, No Bruising, No Other Objective Vitals Vital Signs Date Time Temp Pulse Resp B/P (MAP) Pulse Ox O2 Delivery O2 Flow Rate FiO2 08/11/25 09:00 97.0 57 18 136/66 (89) 95 97.0 08/11/25 08:15 Room Air* 0 21 Intake/Output Intake and Output 08/11/25 07:00 Intake Total 1480 ml Output Total 1150 ml Balance 330 ml Intake Oral 1480 ml Output Urine Total 1150 ml # Voids 9 Medications Current Medications Medications Dose Ordered Sig/Taz Route Start Time Stop Time Status Last Admin Dose Admin Acetaminophen/ Hydrocodone Bitart 1 tab Q4HP PRN PO 08/09/25 13:45 08/11/25 08:10 1 TAB Ondansetron HCl 4 mg Q4HP PRN IV 08/09/25 13:45 Docusate Sodium 100 mg BIDPRN PRN PO 08/09/25 13:45 Acetaminophen 650 mg Q6HP PRN PO 08/09/25 13:45 Nitroglycerin 0.4 mg Q5MINP PRN SL 08/09/25 13:45 Morphine Sulfate 2 mg Q30M PRN IV 08/09/25 13:45 Tamsulosin HCl 0.4 mg DAILY@1800 PO 08/10/25 18:00 08/10/25 18:17 0.4 MG Atorvastatin Calcium 40 mg HS PO 08/09/25 22:00 08/09/25 21:51 40 MG Hydralazine HCl 10 mg Q6HP PRN IV 08/09/25 17:45 08/10/25 09:42 10 MG Methylprednisolone Sodium Succinate 40 mg DAILY IV 08/10/25 10:00 08/11/25 10:12 40 MG Morphine Sulfate 2 mg Q4HPRN PRN IV 08/10/25 12:30 08/10/25 12:45 2 MG Clonidine HCl 0.2 mg Q6HP PRN PO 08/10/25 12:30 08/10/25 12:44 0.2 MG Laboratory Results Laboratory Tests 08/10/25 05:19 Labs and/or images reviewed: Labs reviewed by me, Image(s) reviewed by me Assessment/Plan Assessment/Plan Acute low back pain Burst fracture inferior endplate T 10 by MRI: Consult by spine surgeon appreciated Mechanical fall Intractable pain, 1.7 cm Bladder stones, consult by Urology advised outpatient follow up with the patient's urologist Dr. 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 appreciated Diverticulosis, Gallstones, Hyperlipidemia, BPH, Current smoker: Counseling Chronic current alcohol abuse: Counseling Hypercholesterolemia Time spent 50 minutes Advanced care planning 20 minutes Patient is full code Physical therapy ordered Plan discussed with: Patient, Spouse, Son My Orders Orders - DIANNA ZAMBRANO MD Procedure Category Date Status Time * Dietary Consult CONS 08/10/25 Transmitted 15:30 Cleanse Wound With MAGGIE 08/10/25 In Process Wound Clean 12:40 Date of Service: Aug 11, 2025 Billing Provider: DIANNA ZAMBRANO MD Common Visit Codes: [id number] INP/OBS CARE(HIGH) DIANNA ZAMBRANO MD Aug 11, 2025 13:21
--- NOTE | 2025-08-11 13:24 | DVHPN2 ---
Progress Note - Dictate Date Seen: Aug 09, 2025 Medical Necessity Reason Pt with a Central, PICC or Fol: No Subjective PT WITH MECHANICAL FALL NOW WITH BILATERAL FLANK PAIN HX OF BPH HX OF HTN CT OF CHEST MICRO PUL NODULES COPD CT OF PELVIS CHOLELITHIASIS T12 COMPRESSION FRACTURE BLADDER STONE AAA 3.6 CM DIVERTICULOSIS vital signs Vital Sign Date Time Temp Pulse Resp B/P (MAP) Pulse Ox O2 Delivery O2 Flow Rate FiO2 08/11/25 09:00 97.0 57 18 136/66 (89) 95 97.0 08/11/25 08:15 Room Air* 0 21 Total Intake and Output 08/10/25 08/10/25 08/11/25 15:00 23:00 07:00 Intake Total 180 ml 1100 ml 200 ml Output Total 450 ml 700 ml Balance 180 ml 650 ml -500 ml medications Current Medications Medications Dose Ordered Sig/Taz Route Start Time Stop Time Status Last Admin Dose Admin Acetaminophen/ Hydrocodone Bitart 1 tab Q4HP PRN PO 08/09/25 13:45 08/11/25 08:10 1 TAB Ondansetron HCl 4 mg Q4HP PRN IV 08/09/25 13:45 Docusate Sodium 100 mg BIDPRN PRN PO 08/09/25 13:45 Acetaminophen 650 mg Q6HP PRN PO 08/09/25 13:45 Nitroglycerin 0.4 mg Q5MINP PRN SL 08/09/25 13:45 Morphine Sulfate 2 mg Q30M PRN IV 08/09/25 13:45 Tamsulosin HCl 0.4 mg DAILY@1800 PO 08/10/25 18:00 08/10/25 18:17 0.4 MG Atorvastatin Calcium 40 mg HS PO 08/09/25 22:00 08/09/25 21:51 40 MG Hydralazine HCl 10 mg Q6HP PRN IV 08/09/25 17:45 08/10/25 09:42 10 MG Methylprednisolone Sodium Succinate 40 mg DAILY IV 08/10/25 10:00 08/11/25 10:12 40 MG Morphine Sulfate 2 mg Q4HPRN PRN IV 08/10/25 12:30 08/10/25 12:45 2 MG Clonidine HCl 0.2 mg Q6HP PRN PO 08/10/25 12:30 08/10/25 12:44 0.2 MG laboratory and microbiology Laboratory Tests 08/10/25 05:19 Test 08/10/25 05:19 Range/Units Serum Glucose 136 H 74-106 mg/dL Problem List MECHANICAL FALL NOW WITH BILATERAL FLANK PAIN HX OF BPH HX OF HTN 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
--- NOTE | 2025-08-11 13:28 | DVHDS2 ---
Discharge Summary Date of Admission Aug 09, 2025 at 13:33 Date of Discharge: Aug 11, 2025 Admitting Diagnosis T12 FRACTURE Labs/Diagnostic Data: Laboratory Results Test 08/10/25 05:19 08/09/25 08:50 White Blood Count 8.1 10^3/uL (4.4-10.8) Red Blood Count 4.52 10^6/uL (4.5-5.90) Hemoglobin 15.0 g/dL (13.5-17.5) Hematocrit 43.2 % (41.0-53.0) Mean Corpuscular Volume 95.7 fL (80.0-100.0) Mean Corpuscular Hemoglobin 33.2 pg (28.0-32.0) Mean Corpuscular Hemoglobin Concent 34.7 g/dL (32.0-36.0) Red Cell Distribution Width 14.0 % (11.8-14.3) Platelet Count 166 10^3/uL (140-450) Mean Platelet Volume 7.9 fL (6.9-10.8) Neutrophils (%) (Auto) 80.6 % (37.0-80.0) Lymphocytes (%) (Auto) 11.2 % (10.0-50.0) Monocytes (%) (Auto) 7.2 % (0.0-12.0) Eosinophils (%) (Auto) 0.7 % (0.0-7.0) Basophils (%) (Auto) 0.3 % (0.0-2.0) Neutrophils # (Auto) 6.6 10 ^3/uL (1.6-8.6) Lymphocytes # (Auto) 0.9 10 ^3/uL (0.4-5.4) Monocytes # (Auto) 0.6 10 ^3/uL (0-1.3) Eosinophils # (Auto) 0.1 10 ^3/uL (0-0.8) Basophils # (Auto) 0 10 ^3/uL (0-0.2) Nucleated Red Blood Cells 0.0 % Sodium Level 139 mmol/L (136-145) Potassium Level 3.8 mmol/L (3.5-5.1) Chloride Level 105 mmol/L (98-107) Carbon Dioxide Level 27 mmol/L (20-31) Anion Gap 7 (5-15) Blood Urea Nitrogen 12 mg/dL (9-23) Creatinine 0.98 mg/dL (0.700-1.30) Glomerular Filtration Rate Calc 74 mL/min (>90) BUN/Creatinine Ratio 12.2 (10.0-20.0) Serum Glucose 136 mg/dL (74-106) Calcium Level 9.0 mg/dL (8.7-10.4) Total Bilirubin 1.8 mg/dL (0.2-1.0) Aspartate Amino Transferase (AST) 34 U/L (13-40) Alanine Aminotransferase (ALT) 29 U/L (7-40) Alkaline Phosphatase 63 U/L (46-116) Total Protein 7.7 g/dL (5.7-8.2) Albumin 4.2 g/dL (3.2-4.8) Plasma/Serum Blood Alcohol 3.6 mg/dL (<10) Troponin I High Sensitivity 11 ng/L (</=54) Other Laboratory Tests 08/10/25 05:19 Brief Hx & Hospital Course: MECHANICAL FALL NOW WITH BILATERAL FLANK PAIN HX OF BPH HX OF HTN CT OF CHEST MICRO PUL NODULES COPD CT OF PELVIS CHOLELITHIASIS T12 COMPRESSION FRACTURE BLADDER STONE AAA 3.6 CM DIVERTICULOSIS Assessment/Plan PT PAIN MANAGEMENT MAY DC HOME Condition at Discharge: Guarded Final Diagnosis/Problems List MECHANICAL FALL NOW WITH BILATERAL FLANK PAIN HX OF BPH HX OF HTN CT OF CHEST MICRO PUL NODULES COPD CT OF PELVIS CHOLELITHIASIS T12 COMPRESSION FRACTURE BLADDER STONE AAA 3.6 CM DIVERTICULOSIS Discharge Disposition: Home Discharge Instruct/Medications Diet: Cardiac 2g Na,low cholest Follow Up/Referral: 1 WEEK Medications: CONT HOME MEDS NAPROSYN 375 MG PO BID Scheduled Alfuzosin Hydrochloride (Alfuzosin Hcl Er), 1 TAB PO DAILY, (Reported) Atorvastatin Calcium (Atorvastatin Calcium), 1 TAB PO HS, (Reported) Discharge Statement: "Patient was advised to return to the ER or call 911 if any headaches, dizziness, shortness of breath, chest pain, abdominal pain, bleeding, fevers, or worsening of medical condition. Patient was counseled about treatment plan, medications, possible side effects, patientverbalized understanding. All questions were answered to the best of my ability. This discharge took greater then 30 minutes in planning, reviewing documentation, counseling the patient, and discussing with other team members." ASSESSMENT ASSESSMENT Assessment BORIS WARD MD Aug 11, 2025 13:28
== END 2025-08-11 17:35 | disposition home health service (06) | DRG 552 ==
LOC: ER 08:23 → EDBD 08:23 → OVERFLOW 13:33 → TELE-WESTW 16:05
PROVIDERS: ADMIT Family Medicine; ATTEND Family Medicine
DX: S22.071A Stable burst fracture of T9-T10 vertebra, initial encounter for closed fracture (principal); I71.43 Infrarenal abdominal aortic aneurysm, without rupture; F10.10 Alcohol abuse, uncomplicated; I10 Essential (primary) hypertension; J44.9 Chronic obstructive pulmonary disease, unspecified; N40.0 Benign prostatic hyperplasia without lower urinary tract symptoms; K57.30 Diverticulosis of large intestine without perforation or abscess without bleeding; N21.0 Calculus in bladder; S22.088A Other fracture of T11-T12 vertebra, initial encounter for closed fracture; E78.00 Pure hypercholesterolemia, unspecified; F17.210 Nicotine dependence, cigarettes, uncomplicated; K80.20 Calculus of gallbladder without cholecystitis without obstruction; Z88.0 Allergy status to penicillin; Z85.05 Personal history of malignant neoplasm of liver; Z82.49 Family history of ischemic heart disease and other diseases of the circulatory system; W18.39XA Other fall on same level, initial encounter; Y92.098 Other place in other non-institutional residence as the place of occurrence of the external cause; Y93.01 Activity, walking, marching and hiking; Y99.8 Other external cause status
CPT/HCPCS: 36415; 71045; 71250; 72146; 74176; 76775; 80048; 80053; 80320; 84484; 85025; 93005; 96372; 96374; 96375; 97163; G0378; J2405